=== PATIENT | male | born 1945 | race Caucasian/White ===

== ENCOUNTER 2018-09-25 09:44 | Inpatient (IN) ==
[2018-09-25] MEDS ORDERED: MoRPHine SULFATE 4 MG/ML 1 ML CARP\\VIAL IV STA (10:12)
--- NOTE | 2018-09-25 10:57 | XRay Report ---
LEFT KNEE 2 VIEWS HISTORY: Left knee pain. s/p fall COMPARISON: None. FINDINGS: There is no fracture or dislocation. Soft tissues are unremarkable. No significant knee eff usion. The bones are osteopenic. IMPRESSION: No fracture or dislocation within the left knee. Electronically signed by: Atif Denton M.D. 09/25/2018 10:56 AM
--- NOTE | 2018-09-25 10:57 | XRay Report ---
SINGLE VIEW PELVIS; 2 VIEWS LEFT HIP; 2 VIEWS LEFT FEMUR CLINICAL HISTORY: Fall with left hip injury. FINDINGS: An AP view of the pelvis with AP and crosstable lateral views of the left hip as well as AP and crosstable lateral views of the left femur are obtained. No prior studies are available for carlos braswell at the time of dictation. The skeletal structures are osteopenic. There is no radiographic emre dence of fracture involving the right hip or the bony pelvis. There is a distracted and angulated int ertrochanteric fracture of the left femur with small distracted fragments of the greater trochanter. Overlying soft tissue edema is noted. The distal femur appears intact. The knee joint is grossly main tained. The sacroiliac joints appear preserved. No bowel obstruction is identified. Phleboliths are o bserved in the pelvis. There is atherosclerotic calcification within the femoral arteries. IMPRESSION: 1. Intertrochanteric fracture of the left femur as above. 2. The distal left femur appears intact. 3. No fracture is seen involving the right hip or the bony pelvis. Electronically signed by: Jonnie Peck M.D. 09/25/2018 10:56 AM
--- NOTE | 2018-09-25 10:59 | XRay Report ---
SINGLE VIEW CHEST CLINICAL HISTORY: Fall. FINDINGS: An AP, portable, supine chest radiograph is obtained No prior studies are available for pato worley at the time of dictation. The examination is degraded by portable technique and patient rotat ion. The cardiomediastinal silhouette is unremarkable comment noting mild atherosclerotic calcificati on of the thoracic aorta. There is mild bibasilar atelectasis. No airspace consolidation or large ple ural effusion is identified. No pneumothorax is seen. The skeletal structures are osteopenic. The bon y thorax is grossly intact. IMPRESSION: No acute cardiopulmonary abnormality. Electronically signed by: Jonnie Peck M.D. 09/25/2018 10:58 AM
[2018-09-25] MEDS ORDERED: SODIUM CHLORIDE 0.9% 1000ML 1,000 ML IV SCH (12:00)
[2018-09-25 12:12] LABS: Basophils # (auto) 0.03 K/uL (0-0.2); Basophils % (auto) 0.5 %; Eosinophils # (auto) 0.21 K/uL (0-0.5); Eosinophils % (auto) 3.3 %; Hemoglobin 12.7 g/dL (14.0-18.0); Immature Granulocytes # (auto) 0.02 K/uL (0.00-0.02); Immature Granulocytes % (auto) 0.3 %; Lymphocytes # (auto) 0.68 K/uL (1.2-3.4); Lymphocytes % (auto) 10.8 %; Mean Corpuscular Hgb Conc 36.3 g/dL (32-36); Mean Corpuscular Volume 84.3 fL (80-100); Mean Platelet Volume 10.7 fL (7.4-10.4); Monocytes # (auto) 0.33 K/uL (0.11-0.59); Monocytes % (auto) 5.2 %; Neutrophils # (auto) 5.05 K/uL (1.4-6.5); Neutrophils % (auto) 79.9 %; Platelet Count 120 K/uL (130-400); RDW Coefficient of Variation 13.9 % (11.5-14.5); RDW Standard Deviation 42.6 fL (36.4-46.3); Red Blood Count 4.15 M/uL (4.7-6.1); White Blood Count 6.32 K/uL (4.8-10.8)
[2018-09-25 12:26] LABS: Partial Thromboplastin Time 26.1 Seconds (21.0-31.0)
[2018-09-25 12:33] LABS: BUN Creatinine Ratio 21.3 (10-20); Blood Urea Nitrogen 25 mg/dl (7-18); Calcium 8.6 mg/dl (8.5-10.1); Carbon Dioxide 28 mmol/L (21-32); Chloride 100 mmol/L (98-107); Est GFR (African American) 73.5; Est GFR (Non-African American) 63.5; Glucose 361 mg/dl (70-99); Sodium 133 mmol/L (136-145)
[2018-09-25 12:47] LABS: Beta-Hydroxybutyrate 3.07 mg/dl (0.2-2.81)
--- NOTE | 2018-09-25 12:58 | History & Physical Report ---
Date of Service September 25, 2018 Assessment & Plan (1) Closed intertrochanteric fracture of femur: pain control with Oxycodone and Morphine IV bedrest, traction consult Ortho, plan for OR tomorrow, patient can eat today consult anesthesiology patient with no history of DC, stroke, CKD, arrhythmia or valve disease does have prediabetes with hyperglycemia EKG: NSR CXR: normal should be low to moderate risk for cardiac complications medically optimized for OR (2) Fall: due to slipping on ice no loss of consciousness, this was not syncope (3) Glaucoma: continue home drops (4) Pre-diabetes: sugars quite elevated, > 300, suggests maybe he actually has DM will check HbA1c diabetic diet, Novolog SS History of Present Illness Chief Complaint: I fell and my left hip hurts really bad Primary Care Provider: Brayan Harrison MD 72 yo male with history of pre-diabetes, glaucoma, macular degeneration who was coming out of his house today and slipped on patch of ice. He thought that the patch was snow but it had frozen solid over night. He said he purposefully tried to fall on his side because he did not want to hit his head and did not want to put his arms out in case he would fracture his collar bone. 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 He landed with all his weight on his left hip and instantly had pain. He was able to get to a seated position on the ground but the pain was so intense that he knew he could not stand. His neighbors helped him into a car, lifting him, and brought him to the hospital. He rates the pain as 8 out of 10, constant, worse with movement, Morphine did help a little. Imaging showed a left intertrochanteric fracture, no other injuries seen. Orthopedics called, will plan for OR tomorrow, patient can eat today. Patient has very little in terms of medical history. He has pre-diabetes, not on any medications. His main issues are glaucoma, macular degeneration, cataracts that have been fixed. He denies any history of DC, stroke, CKD, valve disease or arrhythmias. His father from alcoholic cirrhosis, mother from lung cancer, she was a heavy smoker. She also had diabetes. He has a brother who is healthy. The patient does not smoke. He has one Bun Light every night to help him relax but does not drink more than that. CXR normal, Cr 1.1 and EKG shows sinus rhythm Allergies Allergy/AdvReac Type Severity Reaction Status Date / Time cat dander AdvReac Sneezing Verified 09/25/18 10:33 horse dander AdvReac Sneezing Verified 09/25/18 10:33 Home Medications Home Medications Medication Instructions Recorded Confirmed Type ofloxacin OPHTHALMIC (EYE) 09/25/18 History prednisolone acetate OPHTHALMIC (EYE) DIRECTED 09/25/18 History timolol maleate OPHTHALMIC (EYE) 09/25/18 History Past Med/Surg History Family History Father Alcoholic cirrhosis Mother Lung cancer Diabetes Social History Current Living Situation: Spouse Other Information That Helps Us Care for You: No Feels Safe at Home: Yes Safety Concerns: Feels Safe At This Time Smoking Status: Never smoker Second Hand Exposure: No Hx Alcohol Use: Yes Alcohol type: beer Alcohol Intake Frequency: 0-2 drinks per day Hx Substance Use: No Beliefs That Will Affect Care: None Preferred Language: Haitian Communication Ability: Effective Review of Systems All systems reviewed & are unremarkable except as noted in HPI & below Musculoskeletal: + joint pain (severe left hip pain) Physical Exam 2 Vital Signs (Past 24 Hours): Last Vital Signs Temp 36.3 C L 09/25/18 09:53 Pulse 73 09/25/18 12:30 Resp 14 09/25/18 12:30 BP 180/99 H 09/25/18 12:30 Pulse Ox 95 09/25/18 12:30 Constitutional: WD/WN, vitals as above Eyes: PERRL, conjunctivae normal, anicteric sclerae ENMT: external ear and nose normal, oropharynx normal Neck: trachea midline, no thyromegaly Respiratory: normal respiratory effort, lungs clear to auscultation Cardiovascular: RRR, no murmur, no edema Gastrointestinal (Abdomen): normal bowel sounds, soft, nontender, no hepatosplenomegaly Musculoskeletal: no cyanosis or clubbing, extremities motor strength 5/5 Extremities: + limited ROM of extremities (left hip, painful to move) Skin: no rashes, warm and dry Neurologic: patellar DTR's 2+ bilat, sensation intact and PERRL, EOMI, accommodation nl, no face palsy, no dysarthria Psychiatric: A+Ox3, euthymic affect Lymphatic: no cervical or axillary lymphadenopathy Results & Data Laboratory Results Laboratory Results - last 24 hr 09/25/18 09/25/18 09/25/18 11:55 11:55 11:55 WBC 6.32 RBC 4.15 L Hgb 12.7 L Hct 35.0 L MCV 84.3 MCH 30.6 MCHC 36.3 H RDW Std Deviation 42.6 RDW Coeff of Pranav 13.9 Plt Count 120 L MPV 10.7 H Immature Gran % (Auto) 0.3 Neut % (Auto) 79.9 Lymph % (Auto) 10.8 Mccracken % (Auto) 5.2 Eos % (Auto) 3.3 Baso % (Auto) 0.5 Immature Gran # (Auto) 0.02 Neut # (Auto) 5.05 Lymph # (Auto) 0.68 L Mccracken # (Auto) 0.33 Eos # (Auto) 0.21 Baso # (Auto) 0.03 PT 10.0 INR 1.0 APTT 26.1 PTT Ratio 1.0 Sodium 133 L Potassium 4.0 Chloride 100 Carbon Dioxide 28 Anion Gap 5.0 BUN 25 H Creatinine 1.16 Est Cr Clr Drug Dosing Not Reportable Est GFR ( Amer) 73.5 Est GFR (Non-Af Amer) 63.5 BUN/Creatinine Ratio 21.3 H Glucose 361 H* Calcium 8.6 Beta-Hydroxybutyric Acd 3.07 H Diagnostic Findings PELVIC XRAY IMPRESSION: 1. Intertrochanteric fracture of the left femur as above. 2. The distal left femur appears intact. 3. No fracture is seen involving the right hip or the bony pelvis. FEMUR XRAY IMPRESSION: 1. Intertrochanteric fracture of the left femur as above. 2. The distal left femur appears intact. 3. No fracture is seen involving the right hip or the bony pelvis. CHEST XRAY IMPRESSION: No acute cardiopulmonary abnormality ECG Indication: other (pre op) Rhythm: normal sinus Code Status & VTE Plan Code Status FULL CODE VTE Prophylaxis Plan VTE Prophylaxis will be ordered: Yes _ (1) Closed intertrochanteric fracture of femur Encounter type: initial encounter Fracture alignment: nondisplaced Fracture healing: Laterality: left Qualified Code(s): S72.145A - Nondisplaced intertrochanteric fracture of left femur, initial encounter for closed fracture
[2018-09-25] MEDS ORDERED: OXYCODONE HCL IR 5 MG TAB (IMMEDIATE RELEASE) PO PRN (14:33)
[2018-09-25] MEDS ORDERED: MAGNESIUM HYDROXIDE SUSP 30 ML UDC PO PRN (14:33)
[2018-09-25] MEDS ORDERED: ACETAMINOPHEN 325 MG TAB PO PRN (14:33)
[2018-09-25] MEDS ORDERED: POLYETHYLENE (MIRALAX) 17 GM PACK PO PRN (14:33)
[2018-09-25] MEDS ORDERED: BISACODYL 10 MG SUPP PR PRN (14:33)
[2018-09-25] MEDS ORDERED: NALOXONE HCL 0.4 MG/1 ML VIAL/CARP IV PRN (14:33)
[2018-09-25] MEDS ORDERED: SOD PHOSPHATE/SOD BIPHOSPHATE ENEMA 132 ML BTL PR PRN (14:33)
[2018-09-25] MEDS ORDERED: GLUCAGON FOR INJ 1 MG VIAL IM PRN (14:38)
[2018-09-25] MEDS ORDERED: GLUCOSE 40% GEL 15 GM TUBE PO PRN (14:38)
[2018-09-25] MEDS ORDERED: DEXTROSE 50% 50 ML SYRINGE IV PRN (14:38)
[2018-09-25] MEDS ORDERED: GLUCOSE 10 TABS/TUBE PO PRN (14:38)
[2018-09-25] MEDS ORDERED: CARBOHYDRATES FOR HYPOGLYCEMIA PO PRN (14:38)
--- NOTE | 2018-09-25 15:06 | Anesthesiology Consultation ---
Date of Service September 25, 2018 Assessment & Plan (1) Encounter for pre-operative examination: Chart Review Chart Review: Acceptable Risk for Surgery Consults Requested none History Height/Weight Height: 5 ft 10 in Weight: 73.936 kg Allergies Allergy/AdvReac Type Severity Reaction Status Date / Time cat dander AdvReac Sneezing Verified 09/25/18 10:33 horse dander AdvReac Sneezing Verified 09/25/18 10:33 Medications Home Medications Medication Instructions Recorded Confirmed Last Taken ofloxacin OPHTHALMIC (EYE) 09/25/18 Unknown prednisolone acetate OPHTHALMIC (EYE) DIRECTED 09/25/18 Unknown timolol maleate OPHTHALMIC (EYE) 09/25/18 Unknown Active Medications Generic Name Dose Route Start Last Admin Trade Name Freq PRN Reason Stop Dose Admin Sodium Chloride 1,000 mls @ 150 mls/hr 09/25/18 12:00 09/25/18 14:43 Nss 1000ml IV 09/25/18 18:39 150 mls/hr .[id number] [facility] Infusion Past Medical History Medical History Fall Glaucoma Pre-diabetes Hiatal hernia (Acute) Past Family History Family History Father Alcoholic cirrhosis Mother Lung cancer Diabetes Past Surgical History Surgical History Hx of knee surgery Hx of cataract surgery RIGHT on 07/15/18: was given 4mg of versed without apparent complications Social History Smoking Status: Never smoker Hx Alcohol Use: Yes Alcohol type: beer alcohol intake frequency: 0-2 drinks per day Hx Substance Use: No substance use type: does not use Exercise / Class Metabolic Activity II 4-5 Yardwork/Stairs/Walk up hill Physical Exam Vital Signs Last Vital Signs Temp 97.3 F L 09/25/18 14:10 Pulse 80 09/25/18 14:10 Resp 18 09/25/18 14:10 BP 182/92 H 09/25/18 14:10 Pulse Ox 98 09/25/18 14:10 Testing Electrocardiogram Date: 09/25/18 Findings: + NSR @ (73 bpm) Chest X-Ray Date: 09/25/18 Findings: + NAD Laboratory Results 09/25/18 11:55 09/25/18 11:55 Blood Type O Positive 09/25/18 11:55 Antibody Screen NEGATIVE 09/25/18 11:55 PT 10.0 Seconds (9.0-12.0) 09/25/18 11:55 INR 1.0 (0.9-1.1) 09/25/18 11:55 APTT 26.1 Seconds (21.0-31.0) 09/25/18 11:55
[2018-09-25] MEDS: MoRPHine SULFATE 4 MG/ML 1 ML CARP\\VIAL IV PRN (15:44)
[2018-09-25 15:53] LABS: Appearance Urine Clear (Clear); Bacteria Urine Automated Negative (Negative); Bilirubin Urine Negative (Negative); Blood Urine Negative (Negative); Cast Urine Automated 0 /lpf (0-5); Color Urine Yellow; Epithelial Cell Urine Auto 0-5 /lpf (0-5); Glucose Urine UA 3+ (Negative); Ketones Urine Negative (Negative); Leukocyte Esterase Urine Negative (Negative); Nitrite Urine Negative (Negative); Protein Urine 1+ (Negative); RBC Urine Automated 0-4 /hpf (0-4); Specific Gravity Urine 1.028 (1.000-1.030); Urobilinogen Urine Negative (Negative); WBC Urine Automated 0 /hpf (0-5); pH Urine 6.5 (4.5-7.5)
--- NOTE | 2018-09-25 16:53 | Emergency Department Note ---
Entered by Christine Isaacs acting as a scribe for History of Present Illness General Chief complaint: Fall Stated complaint: FALL Time Seen by Provider: 09/25/18 09:58 Source: patient Mode of arrival: ambulatory Limitations: no limitations History of Present Illness Onset (ago): day(s) (829) Location: lower extremity (left) Radiation: other (ankle) Pain Consistency: + other (episode) Maximum Pain Intensity: 10 Quality: + other (fall) Associated symptoms: + other (The patient complains of pain in his left thigh that radiates down ho his left ankle. The patient denies head pain, chest pain, left hip pain, right leg pain, and abnormal pain. ); no chest pain The patient is a 72 male w/ PMHx of a broken knee, glaucoma, pre- diabetes who presents to the ED w/ CC of an episode fall beginning 829. He states that he fell on his left side. The patient complains of pain in his left thigh that radiates down to his left ankle. The patient denies head pain, chest pain, left hip pain, right leg pain, and abnormal pain. Per , the patient took two acetaminophen. Home Medications Home Medications Medication Instructions Recorded Confirmed Type ofloxacin OPHTHALMIC (EYE) 09/25/18 History prednisolone acetate OPHTHALMIC (EYE) DIRECTED 09/25/18 History timolol maleate OPHTHALMIC (EYE) 09/25/18 History Allergies Allergy/AdvReac Type Severity Reaction Status Date / Time cat dander AdvReac Sneezing Verified 09/25/18 10:33 horse dander AdvReac Sneezing Verified 09/25/18 10:33 Past Med/Surg History Medical History Fall Glaucoma Pre-diabetes Hiatal hernia (Acute) Surgical History Hx of knee surgery Hx of cataract surgery RIGHT on 07/15/18: was given 4mg of versed without apparent complications Family History Father Alcoholic cirrhosis Mother Lung cancer Diabetes Social History Current Living Situation: Spouse Other Information That Helps Us Care for You: No Feels Safe at Home: Yes Safety Concerns: Feels Safe At This Time Smoking Status: Never smoker Second Hand Exposure: No Hx Alcohol Use: Yes Alcohol type: beer Alcohol Intake Frequency: 0-2 drinks per day Hx Substance Use: No Beliefs That Will Affect Care: None Preferred Language: Occitan Communication Ability: Effective Review of Systems See HPI for pertinent positives & negatives. and A total of 10 systems reviewed and were otherwise negative Physical Exam Vital Signs Vital Signs - 24 hr 09/25/18 09:53 09/25/18 10:21 09/25/18 11:26 Temperature 36.3 C L Temperature Source Oral Sepsis Recent Fever Within 48 Hours No Sepsis New/Unexplained Change in Mental Status No Sepsis Action Taken by Nursing No Action Required Pulse Rate 74 Pulse Rate [Finger] 72 74 Pulse Rate from SpO2 Sensor Pulse Rhythm [Finger] Regular Respiratory Rate 18 18 16 Respiratory Effort / Characteristics Non-Labored Spontaneous Non-Labored Spontaneous Non-Labored Spontaneous Respiratory Depth Normal Normal Normal Respiratory Pattern Regular Regular Regular Blood Pressure 213/104 H Blood Pressure [Left Arm] 201/117 H Blood Pressure [Right Arm] 200/108 H 208/109 H Blood Pressure Mean 140 Blood Pressure Mean [Left Arm] 145 Blood Pressure Mean [Right Arm] 138 142 Blood Pressure Position [Left Arm] Blood Pressure Position [Right Arm] Lying Pulse Oximetry 100 100 96 Oxygen Delivery Method Room Air Room Air 09/25/18 12:09 09/25/18 12:30 09/25/18 12:31 Temperature Temperature Source Sepsis Recent Fever Within 48 Hours Sepsis New/Unexplained Change in Mental Status Sepsis Action Taken by Nursing Pulse Rate 73 Pulse Rate [Finger] 72 Pulse Rate from SpO2 Sensor 73 Pulse Rhythm [Finger] Respiratory Rate 19 14 Respiratory Effort / Characteristics Respiratory Depth Respiratory Pattern Blood Pressure 180/99 H Blood Pressure [Left Arm] 189/107 H Blood Pressure [Right Arm] Blood Pressure Mean 126 Blood Pressure Mean [Left Arm] 134 Blood Pressure Mean [Right Arm] Blood Pressure Position [Left Arm] Blood Pressure Position [Right Arm] Pulse Oximetry 94 95 Oxygen Delivery Method Room Air Room Air Room Air 09/25/18 13:01 09/25/18 13:31 09/25/18 14:10 Temperature 36.3 C L Temperature Source Oral Sepsis Recent Fever Within 48 Hours Sepsis New/Unexplained Change in Mental Status Sepsis Action Taken by Nursing Pulse Rate 74 Pulse Rate [Finger] 75 80 Pulse Rate from SpO2 Sensor 74 Pulse Rhythm [Finger] Respiratory Rate 25 H 17 18 Respiratory Effort / Characteristics Non-Labored Spontaneous Respiratory Depth Normal Respiratory Pattern Regular Blood Pressure 151/88 H Blood Pressure [Left Arm] 153/89 H Blood Pressure [Right Arm] 182/92 H Blood Pressure Mean 109 Blood Pressure Mean [Left Arm] 110 Blood Pressure Mean [Right Arm] 122 Blood Pressure Position [Left Arm] Blood Pressure Position [Right Arm] Lying Pulse Oximetry 96 98 98 Oxygen Delivery Method Room Air Room Air Room Air 09/25/18 15:22 Temperature 36.5 C Temperature Source Oral Sepsis Recent Fever Within 48 Hours Sepsis New/Unexplained Change in Mental Status Sepsis Action Taken by Nursing Pulse Rate Pulse Rate [Finger] 77 Pulse Rate from SpO2 Sensor Pulse Rhythm [Finger] Respiratory Rate 17 Respiratory Effort / Characteristics Respiratory Depth Respiratory Pattern Blood Pressure Blood Pressure [Left Arm] 168/87 H Blood Pressure [Right Arm] Blood Pressure Mean Blood Pressure Mean [Left Arm] 114 Blood Pressure Mean [Right Arm] Blood Pressure Position [Left Arm] Lying Blood Pressure Position [Right Arm] Pulse Oximetry 95 Oxygen Delivery Method Room Air GENERAL: Anxious in appearance. EYE EXAM: Normal conjunctiva. PERRL, no anisocoria and EOM's grossly intact w/o pain. OROPHARYNX: Mucous membranes moist. NECK: Supple, no nuchal rigidity, no adenopathy, non-tender. no signs of meningismus. LUNGS: Clear to auscultation. Normal chest wall mechanics. HEART: NSR, no MRG. ABDOMEN: Abdomen soft, non-tender, normo-active bowel sounds, no masses, no rebound or guarding. BACK: No CVA TTP. SKIN: No rashes and no bruising. UPPER EXTREMITIES: Upper extremities are grossly normal. LOWER EXTREMITIES: Mid-thigh pain, decreased range of motion secondary to pain, legs appear of equal length, SILT. NEURO EXAM: Alert and oriented x3, GCS of 15, moves all extremities without issue, no gross deficits. Course 1005: Past medical records reviewed. The patient was evaluated in room B2, and a complete history and physical examination were performed. 1157: I reviewed the patient's case with Dr. Keith Huston [facility]. He will evaluate the patient for further management. 1219: I reviewed the patient's case with Dr. Derrell Huston. He will evaluate the patient for further management. 1235: I reviewed the patient's case with Dr. Anup Doran - Ellie [facility]. He will evaluate the patient for further management. Consultations Consultation #1: [id number]: I reviewed the patient's case with Dr. Keith Huston [facility]. He will evaluate the patient for further management. Time: 11:57 Consultation #2: [id number]: I reviewed the patient's case with Dr. Derrell Huston. He will evaluate the patient for further management. Time: 12:19 Consultation #3: [id number]: I reviewed the patient's case with Dr. Anup Doran - Ellie [facility]. He will evaluate the patient for further management. Time: 12:35 Administered Medications Sodium Chloride (Nss 1000ml) 1,000 mls @ 150 mls/hr IV .[id number] FAWN Stop: 09/25/18 18:39 Last Infusion: 09/25/18 14:43 Dose: 150 mls/hr Admin: 09/25/18 12:01 Dose: 150 mls/hr Morphine Sulfate (Morphine Sulfate) 2 mg IV Q2H PRN PRN Reason: moderate pain (scale 4-6) Stop: 10/09/18 14:32 Last Admin: 09/25/18 15:44 Dose: 2 mg Discontinued Medications Morphine Sulfate (Morphine Sulfate) 4 mg IV NOW STA Stop: 09/25/18 10:13 Last Admin: 09/25/18 10:21 Dose: 4 mg Medical Decision Making Medical Records Attestation: I reviewed the patient's medical records. Home Medications Current Medication List: was personally reviewed by me Laboratory Data Attestation: I reviewed the patient's lab results. Result diagrams: 09/25/18 11:55 09/25/18 11:55 Lab Results 09/25/18 09/25/18 09/25/18 Range/Units 11:55 11:55 11:55 WBC 6.32 (4.8-10.8) K/uL RBC 4.15 L (4.7-6.1) M/uL Hgb 12.7 L (14.0-18.0) g/dL Hct 35.0 L (42-52) % MCV 84.3 (80-100) fL MCH 30.6 (25-34) pg MCHC 36.3 H (32-36) g/dL RDW Std Deviation 42.6 (36.4-46.3) fL RDW Coeff of Pranav 13.9 (11.5-14.5) % Plt Count 120 L (130-400) K/uL MPV 10.7 H (7.4-10.4) fL Immature Gran % (Auto) 0.3 % Neut % (Auto) 79.9 % Lymph % (Auto) 10.8 % [place] % (Auto) 5.2 % Eos % (Auto) 3.3 % Baso % (Auto) 0.5 % Immature Gran # (Auto) 0.02 (0.00-0.02) K/uL Neut # (Auto) 5.05 (1.4-6.5) K/uL Lymph # (Auto) 0.68 L (1.2-3.4) K/uL [place] # (Auto) 0.33 (0.11-0.59) K/uL Eos # (Auto) 0.21 (0-0.5) K/uL Baso # (Auto) 0.03 (0-0.2) K/uL PT 10.0 (9.0-12.0) Seconds INR 1.0 (0.9-1.1) APTT 26.1 (21.0-31.0) Seconds PTT Ratio 1.0 Sodium 133 L (136-145) mmol/L Potassium 4.0 (3.5-5.1) mmol/L Chloride 100 (98-107) mmol/L Carbon Dioxide 28 (21-32) mmol/L Anion Gap 5.0 (3-11) BUN 25 H (7-18) mg/dl Creatinine 1.16 (0.6-1.4) mg/dl Est Cr Clr Drug Dosing Not Reportable Est GFR ( Amer) 73.5 Est GFR (Non-Af Amer) 63.5 BUN/Creatinine Ratio 21.3 H (10-20) Glucose 361 H* (70-99) mg/dl Calcium 8.6 (8.5-10.1) mg/dl Beta-Hydroxybutyric Acd 3.07 H (0.2-2.81) mg/dl Urine Color Urine Appearance (Clear) Urine pH (4.5-7.5) Ur Specific [place] (1.000-1.030) Urine Protein (Negative) Urine Glucose (UA) (Negative) Urine Ketones (Negative) Urine Blood (Negative) Urine Nitrite (Negative) Urine Bilirubin (Negative) Urine Urobilinogen (Negative) Ur Leukocyte Esterase (Negative) Urine WBC (Auto) (0-5) /hpf Urine RBC (Auto) (0-4) /hpf U Hyaline Cast (Auto) (0-5) /lpf U Epithel Cells (Auto) (0-5) /lpf Urine Bacteria (Auto) (Negative) Blood Type Antibody Screen 09/25/18 09/25/18 Range/Units 11:55 14:56 WBC (4.8-10.8) K/uL RBC (4.7-6.1) M/uL Hgb (14.0-18.0) g/dL Hct (42-52) % MCV (80-100) fL MCH (25-34) pg MCHC (32-36) g/dL RDW Std Deviation (36.4-46.3) fL RDW Coeff of Pranav (11.5-14.5) % Plt Count (130-400) K/uL MPV (7.4-10.4) fL Immature Gran % (Auto) % Neut % (Auto) % Lymph % (Auto) % [place] % (Auto) % Eos % (Auto) % Baso % (Auto) % Immature Gran # (Auto) (0.00-0.02) K/uL Neut # (Auto) (1.4-6.5) K/uL Lymph # (Auto) (1.2-3.4) K/uL [place] # (Auto) (0.11-0.59) K/uL Eos # (Auto) (0-0.5) K/uL Baso # (Auto) (0-0.2) K/uL PT (9.0-12.0) Seconds INR (0.9-1.1) APTT (21.0-31.0) Seconds PTT Ratio Sodium (136-145) mmol/L Potassium (3.5-5.1) mmol/L Chloride (98-107) mmol/L Carbon Dioxide (21-32) mmol/L Anion Gap (3-11) BUN (7-18) mg/dl Creatinine (0.6-1.4) mg/dl Est Cr Clr Drug Dosing Est GFR ( Amer) Est GFR (Non-Af Amer) BUN/Creatinine Ratio (10-20) Glucose (70-99) mg/dl Calcium (8.5-10.1) mg/dl Beta-Hydroxybutyric Acd (0.2-2.81) mg/dl Urine Color Yellow Urine Appearance Clear (Clear) Urine pH 6.5 (4.5-7.5) Ur Specific [place] 1.028 (1.000-1.030) Urine Protein 1+ H (Negative) Urine Glucose (UA) 3+ H (Negative) Urine Ketones Negative (Negative) Urine Blood Negative (Negative) Urine Nitrite Negative (Negative) Urine Bilirubin Negative (Negative) Urine Urobilinogen Negative (Negative) Ur Leukocyte Esterase Negative (Negative) Urine WBC (Auto) 0 (0-5) /hpf Urine RBC (Auto) 0-4 (0-4) /hpf U Hyaline Cast (Auto) 0 (0-5) /lpf U Epithel Cells (Auto) 0-5 (0-5) /lpf Urine Bacteria (Auto) Negative (Negative) Blood Type O Positive Antibody Screen NEGATIVE Imaging Data Radiologist's Impression: Radiology results as stated below per my review and the radiologist's interpretation: LEFT KNEE 2 VIEWS HISTORY: Left knee pain. s/p fall COMPARISON: None. FINDINGS: There is no fracture or dislocation. Soft tissues are unremarkable. No significant knee effusion. The bones are osteopenic. IMPRESSION: No fracture or dislocation within the left knee. Electronically signed by: Atif Denton M.D. 09/25/2018 10:56 AM Dictated: 09/25/18 1055 Transcribed: 09/25/18 1055 SINGLE VIEW PELVIS; 2 VIEWS LEFT HIP; 2 VIEWS LEFT FEMUR CLINICAL HISTORY: Fall with left hip injury. FINDINGS: An AP view of the pelvis with AP and crosstable lateral views of the left hip as well as AP and crosstable lateral views of the left femur are obtained. No prior studies are available for comparison at the time of dictation. The skeletal structures are osteopenic. There is no radiographic evidence of fracture involving the right hip or the bony pelvis. There is a distracted and angulated intertrochanteric fracture of the left femur with small distracted fragments of the greater trochanter. Overlying soft tissue edema is noted. The distal femur appears intact. The knee joint is grossly maintained. The sacroiliac joints appear preserved. No bowel obstruction is identified. Phleboliths are observed in the pelvis. There is atherosclerotic calcification within the femoral arteries. IMPRESSION: 1. Intertrochanteric fracture of the left femur as above. 2. The distal left femur appears intact. 3. No fracture is seen involving the right hip or the bony pelvis. Electronically signed by: Jonnie Peck M.D. 09/25/2018 10:56 AM Dictated: 09/25/18 1054 Transcribed: 09/25/18 1054 SINGLE VIEW PELVIS; 2 VIEWS LEFT HIP; 2 VIEWS LEFT FEMUR CLINICAL HISTORY: Fall with left hip injury. FINDINGS: An AP view of the pelvis with AP and crosstable lateral views of the left hip as well as AP and crosstable lateral views of the left femur are obtained. No prior studies are available for comparison at the time of dictation. The skeletal structures are osteopenic. There is no radiographic evidence of fracture involving the right hip or the bony pelvis. There is a distracted and angulated intertrochanteric fracture of the left femur with small distracted fragments of the greater trochanter. Overlying soft tissue edema is noted. The distal femur appears intact. The knee joint is grossly maintained. The sacroiliac joints appear preserved. No bowel obstruction is identified. Phleboliths are observed in the pelvis. There is atherosclerotic calcification within the femoral arteries. IMPRESSION: 1. Intertrochanteric fracture of the left femur as above. 2. The distal left femur appears intact. 3. No fracture is seen involving the right hip or the bony pelvis. Electronically signed by: Jonnie Peck M.D. 09/25/2018 10:56 AM Dictated: 09/25/18 1054 Transcribed: 09/25/18 105 SINGLE VIEW CHEST CLINICAL HISTORY: Fall. FINDINGS: An AP, portable, supine chest radiograph is obtained No prior studies are available for comparison at the time of dictation. The examination is degraded by portable technique and patient rotation. The cardiomediastinal silhouette is unremarkable comment noting mild atherosclerotic calcification of the thoracic aorta. There is mild bibasilar atelectasis. No airspace consolidation or large pleural effusion is identified. No pneumothorax is seen. The skeletal structures are osteopenic. The bony thorax is grossly intact. IMPRESSION: No acute cardiopulmonary abnormality. Electronically signed by: Jonnie Peck M.D. 09/25/2018 10:58 AM Dictated: 09/25/18 1057 Transcribed: 09/25/18 105 ECG Data Attestation: I personally reviewed and interpreted this ECG as follows: Indication: other (fall) Rate (beats per minute): 73 Rhythm: normal sinus Findings: + other (normal interval, normal axis); no acute ischemic change Blood Pressure Blood Pressure Findings: Elevated blood pressure Blood Pressure Disposition: further management by hospitalist MDM Narrative The patient is a 72 white male w/ PMHx of a broken knee, glaucoma, pre-diabetes who presents to the ED w/ CC of an episode fall beginning 829. Differential Diagnoses Include: Etiologies such as soft tissue injury, fracture, dislocation, neurovascular compromise, compartment syndrome, as well as others were entertained. Patient was seen and evaluated the bedside. The patient states he was walking on his driveway did have a fall to his left side. The patient states he did not strike his head. The patient does not take any blood thinning medications. The patient does complain primarily of left thigh pain. The patient's bilateral lower extremities appear of equal length. Sensation is intact. His range of motion is limited secondary to pain. The patient did have plain films completed along with medications given system for symptom control. The patient does not take any blood thinning medications did not strike his head does not have any neck pain I do not believe he requires a CT of the head or neck at this time. Patient's plain films did show a left and fracture. This is a closed injury sensation intact to light touch. I did speak with orthopedics. I did speak with the on-call hospitalist who agreed to further evaluate and admit the patient. The patient was to be seen by orthopedics and a likely surgical procedure tomorrow. Impression & Plan Closed intertrochanteric fracture of femur Discharge Plan Visit Data *Final* Discharge Date/Time: 09/25/18 14:09 Chief Complaint: Fall Stated Complaint: FALL ED Provider: Sebastian Loyd Discharge Problem: Closed intertrochanteric fracture of femur Patient Disposition: Admitted As Inpatient Discharge Instructions Interventions: ED Discharge Assessment Last Done: 09/25/18 14:09 The ramonaibe's documentation has been prepared under my direction and personally reviewed by me in its entirety. I confirm that the note above accurately reflects all work, treatment, procedures, and medical decision making performed by me.
--- NOTE | 2018-09-25 18:14 | Orthopedic Consultation ---
Date of Consultation September 25, 2018 Assessment & Plan (1) Closed intertrochanteric fracture of femur: Left intertrochanteric hip fracture. X-rays to be reviewed by Dr. Dove this evening. Plans will likely be for left trochanteric femoral nailing of the intertrochanteric fracture. Planning for the operating room tomorrow 09/26/2018. History of Present Illness Reason for Consultation: Left hip fx Attending Physician: Anup Doran, History of Present Illness Patient is a 72-year-old white male who states that he was going out this morning when he slipped on the ice. He ended up falling onto his side and after doing so, he had immediate pain in his left hip and groin. He was able to sit up however he was having moderate pain and was unable to ambulate. He was able to a obtain help from his neighbors and he was brought to the emergency room. He was seen by the staff and x-rays were taken. Films showed an intertrochanteric fracture of the left hip. He was admitted by the medicine service and we have been asked to see him for his hip fracture. He denies hitting his head during the fall. He denies loss of consciousness. He denied shortness of breath, chest pain, lightheadedness prior to or after the fall.Currently he is lying in bed and has a pillow under his left lower extremity. He states that most of his pain at this point is just below the fracture site anteriorly on the thigh. Allergies Allergy/AdvReac Type Severity Reaction Status Date / Time cat dander AdvReac Sneezing Verified 09/25/18 10:33 horse dander AdvReac Sneezing Verified 09/25/18 10:33 Home Medications Home Medications Medication Instructions Recorded Confirmed Type ofloxacin OPHTHALMIC (EYE) 09/25/18 History prednisolone acetate OPHTHALMIC (EYE) DIRECTED 09/25/18 History timolol maleate OPHTHALMIC (EYE) 09/25/18 History Patient History Medical History Fall Glaucoma Pre-diabetes Hiatal hernia (Acute) Surgical History Hx of knee surgery Hx of cataract surgery RIGHT on 07/15/18: was given 4mg of versed without apparent complications Family History Father Alcoholic cirrhosis Mother Lung cancer Diabetes Social History Current Living Situation: Spouse Other Information That Helps Us Care for You: No Feels Safe at Home: Yes Safety Concerns: Feels Safe At This Time Smoking Status: Never smoker Second Hand Exposure: No Hx Alcohol Use: Yes Alcohol type: beer Alcohol Intake Frequency: 0-2 drinks per day Hx Substance Use: No Beliefs That Will Affect Care: None Preferred Language: Tajik Communication Ability: Effective Review of Systems As per admitting history and physical. No flu or cold-like symptoms of recent. Denies chills, fevers, nausea or vomiting. Physical Exam 2 Vital Signs (Past 24 Hours): Last Vital Signs Temp 36.5 C 09/25/18 15:22 Pulse 77 09/25/18 15:22 Resp 17 09/25/18 15:22 BP 168/87 H 09/25/18 15: Pulse Ox 95 09/25/18 15:22 Physical Exam: Focusing exam on the lower extremity. His left lower extremity is shortened and externally rotated compared to the right. No attempts remove made to move the left hip. Due to fracture. He is nontender the left knee and has good range of motion of his left ankle and toes. Sensation is intact. Right lower extremity is benign and within normal limits with range of motion. Distal pulses are equal bilaterally. He has no overt bruising over the left hip. He has mild swelling. Upper extremities at this time are benign and have good range of motion at the shoulders elbows and wrist without pain. He denies neck pain and has good range of motion at this time. He denies thoracic or low back pain. There is no gross motor or sensory loss. _ (1) Closed intertrochanteric fracture of femur Encounter type: initial encounter Fracture alignment: nondisplaced Fracture healing: Laterality: left Qualified Code(s): S72.145A - Nondisplaced intertrochanteric fracture of left femur, initial encounter for closed fracture
[2018-09-25] MEDS: INSULIN ASPART 100 UNITS/ML 3 ML PEN SC SCH ×2 (18:51→21:25)
[2018-09-25] MEDS: DOCUSATE SODIUM/SENNA 50/8.6MG TAB PO SCH (21:23)
[2018-09-26] MEDS ORDERED: Nursing to Pharmacy Communication ONE ×2 (02:02→10:41)
[2018-09-26] MEDS: MoRPHine SULFATE 4 MG/ML 1 ML CARP\\VIAL IV PRN (05:55)
[2018-09-26] MEDS ORDERED: INSULIN ASPART 100 UNITS/ML 3 ML PEN SC SCH ×2 (06:00→12:00)
[2018-09-26] MEDS ORDERED: CEFAZOLIN 2000MG 2,000 MG/15 ML SYR IV SCH (06:00)
[2018-09-26] MEDS ORDERED: fentaNYL citrate 100 MCG/2 ML VIAL IV PRN (07:27)
[2018-09-26] MEDS ORDERED: ePHEDrine sulfate 50 MG/ML AMP IV PRN (07:27)
[2018-09-26] MEDS ORDERED: ONDANSETRON INJ 2 MG/ML 2 ML VIAL IV PRN (07:27)
[2018-09-26] MEDS ORDERED: ATROPINE SULFATE 0.1 MG/ML 10ML SYR IV PRN (07:27)
[2018-09-26] MEDS ORDERED: BUPIVACAINE 0.5 % 5 MG/1 ML PF 10ML VIAL ONE (07:31)
[2018-09-26] MEDS ORDERED: PROPOFOL IV EMULSION 10 MG/ML 20 ML VIAL IV ONE ×2 (07:31→08:41)
[2018-09-26] MEDS ORDERED: fentaNYL citrate 100 MCG/2 ML VIAL ONE (07:32)
[2018-09-26] MEDS ORDERED: MIDAZOLAM HCL 1 MG/ML 2ML VIAL ONE (07:32)
--- NOTE | 2018-09-26 08:05 | History & Physical Bridge Note ---
Date of Service September 26, 2018 History & Physical Bridge Note I have examined the patient, reviewed the History & Physical and in the interval since the performance of the History & Physical I have noted the following changes of clinical significance: no changes noted
[2018-09-26] MEDS ORDERED: BUPIVACAINE 0.5 % 5 MG/1 ML MPF 30ML VIAL ONE (08:51)
--- NOTE | 2018-09-26 08:51 | Hospitalist Progress Note ---
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 No double vision blurry vision No problems with speech or swallowing No palpitations, chest pain or pressure No Wheezing or breathing issues No abdominal pain nausea vomiting diarrhea changes in appetite or weight No burning urine urine frequency or changes in color complaints of some left leg pain No skin rashes or oral lesions No unusual bruising or bleeding No focused back pain or numbness or loss of strength No changes in memory or confusion Physical Exam 2 Vital Signs (Past 24 Hours): Last Vital Signs Temp 37.3 C 09/26/18 07:19 Pulse 83 09/26/18 07:19 Resp 16 09/26/18 07:19 BP 139/75 09/26/18 07:19 Pulse Ox 94 09/26/18 07:19 The patient appeared well nourished and normally developed. Vital signs as documented. Head exam is unremarkable. normocephalic, atraumatic Neck is without jugular venous distension, thyromegaly, or lymphademopathy Lungs are clear to auscultation and percussion. Cardiac exam reveals Rhythm is regular. First and second heart sounds normal. Abdominal exam reveals normal bowel sounds, no masses, no organomegaly Extremities are nonedematous and both pedal pulses are present does have typical postoperative pain Neurologic exam is A&Ox3, no focal deficits, strength is equal bilateral Psychologically seems neither anxious or depressed Skin is warm Dry without bruises or lesions _ (1) Closed intertrochanteric fracture of femur Encounter type: initial encounter Fracture alignment: nondisplaced Fracture healing: Laterality: left Qualified Code(s): S72.145A - Nondisplaced intertrochanteric fracture of left femur, initial encounter for closed fracture
--- NOTE | 2018-09-26 09:45 | Fluoroscopy Report ---
FL hip LT 2-3V HISTORY: 72 years-old Male LEFT TROCH NAIL status post placement of a left intratrochanteric nail wi th medullary sherice COMPARISON: Left femur and left hip radiographs 09/25/2018 TECHNIQUE: 4 spot fluoroscopic images of the left hip were obtained utilizing 55.2 seconds fluoroscop y time FINDINGS: There is satisfactory near-anatomic alignment of the left intertrochanteric fracture status post plac ement of an intratrochanteric nail with medullary sherice. No retained foreign bodies identified. IMPRESSION: Fluoroscopic assistance as above. Please see operative report for further details. The above report was generated using voice recognition software. It may contain grammatical, syntax o r spelling errors. Electronically signed by: Francis James M.D. 09/26/2018 9:43 AM
--- NOTE | 2018-09-26 09:52 | Post Operative Brief Note ---
Immediate Post Op Note v1 Date of Surgery September 26, 2018 Pre & Post Diagnosis Operation Date: 09/26/18 07:30 Pre-Op Diagnosis: Displaced ntertrochanteric fracture of the left femur Post-Op Diagnosis: Displaced intertrochanteric fracture of the left femur Procedure Operation Date: 09/26/18 07:30 Actual Procedures p open reduction internal fixation left intertrochanteric hip fracture with Synthes 12 x 235 mm trochanteric Fixation Nail, 11 mm x 95 mm helical blade and a 5 x 40 mm interlocking screw (Left) - Teja Dove DO Surgeon Teja Dove DO Meat Service Team Member Keith Kwok PA-C Estimated Blood Loss 30 Findings Consistent with Post-Op Diagnosis Specimens None Anesthesia Type Spinal MAC Complications none Disposition Accompanied Patient To Recovery: Yes Disposition: Recovery Room
--- NOTE | 2018-09-26 09:53 | Anesthesiology Progress Note ---
Date of Service September 26, 2018 Anesthesia Post Procedure Vital Signs Vital Signs: Temp Pulse Pulse Resp BP BP BP 09/26/18 07:19 99.1 F 83 16 139/75 09/26/18 05:54 99.5 F 82 18 150/79 H 09/25/18 23:14 99.1 F 79 18 142/78 H 09/25/18 15:22 97.7 F 77 17 168/87 H 09/25/18 14:10 97.3 F L 80 18 182/92 H 09/25/18 13:31 75 17 153/89 H 09/25/18 13:01 74 25 H 151/88 H 09/25/18 12:30 73 14 180/99 H 09/25/18 12:09 72 19 189/107 H 09/25/18 11:26 74 16 201/117 H 208/109 H 09/25/18 10:21 72 18 200/108 H 09/25/18 09:53 97.3 F L 74 18 213/104 H Pulse Ox 09/26/18 07:19 94 09/26/18 05:54 92 09/25/18 23:14 92 09/25/18 15:22 95 09/25/18 14:10 98 09/25/18 13:31 98 09/25/18 13:01 96 09/25/18 12:30 95 09/25/18 12:09 94 09/25/18 11:26 96 09/25/18 10:21 100 09/25/18 09:53 100 Pain Intensity Left Leg: Pain Intensity: 8 Notes Mental Status: alert / awake / arousable and participated in evaluation Patient Amnestic to Procedure: Yes Nausea / Vomiting: adequately controlled Pain: adequately controlled Airway Patency, RR, SpO2: stable & adequate BP & HR: stable & adequate Hydration State: stable & adequate Anesthetic Complications: no major complications apparent and Pt Satisfied with anesthetic care
[2018-09-26] MEDS ORDERED: HYDROmorphone INJ 0.5 MG/0.5 ML SYR IV PRN ×3 (10:35→13:50)
[2018-09-26] MEDS ORDERED: NALOXONE HCL 0.4 MG/1 ML VIAL/CARP IV PRN (10:35)
[2018-09-26 11:01] LABS: Basophils # (auto) 0.03 K/uL (0-0.2); Basophils % (auto) 0.3 %; Eosinophils # (auto) 0.36 K/uL (0-0.5); Eosinophils % (auto) 4.1 %; Hematocrit (blood only) 31.2 % (42-52); Hemoglobin 11.2 g/dL (14.0-18.0); Immature Granulocytes # (auto) 0.03 K/uL (0.00-0.02); Immature Granulocytes % (auto) 0.3 %; Lymphocytes # (auto) 0.92 K/uL (1.2-3.4); Lymphocytes % (auto) 10.5 %; Mean Corpuscular Hgb Conc 35.9 g/dL (32-36); Mean Corpuscular Volume 86.2 fL (80-100); Mean Platelet Volume 9.9 fL (7.4-10.4); Monocytes # (auto) 0.68 K/uL (0.11-0.59); Monocytes % (auto) 7.7 %; Neutrophils # (auto) 6.76 K/uL (1.4-6.5); Neutrophils % (auto) 77.1 %; Platelet Count 107 K/uL (130-400); RDW Coefficient of Variation 14.1 % (11.5-14.5); RDW Standard Deviation 44.4 fL (36.4-46.3); Red Blood Count 3.62 M/uL (4.7-6.1); White Blood Count 8.78 K/uL (4.8-10.8)
[2018-09-26 11:05] LABS: Estimated Average Glucose 212 mg/dl
[2018-09-26 11:31] LABS: BUN Creatinine Ratio 15.2 (10-20); Calcium 7.9 mg/dl (8.5-10.1); Creatinine Clr Calc Pharmacy 60.7 ml/min; Est GFR (African American) 72.8; Est GFR (Non-African American) 62.8; Potassium 3.8 mmol/L (3.5-5.1)
[2018-09-26] MEDS: INSULIN ASPART 100 UNITS/ML 3 ML PEN SC SCH ×3 (13:15→22:00)
[2018-09-26] MEDS ORDERED: HYDROmorphone INJ 0.5 MG/0.5 ML SYR IV STA (13:25)
[2018-09-26] MEDS: CEFAZOLIN 1000MG 1,000 MG/7.5 ML SYR IV SCH (17:16)
[2018-09-26] MEDS: OXYCODONE HCL IR 5 MG TAB (IMMEDIATE RELEASE) PO PRN ×2 (17:17→21:29)
[2018-09-26] MEDS ORDERED: SODIUM CHLORIDE 0.9% 1000ML 1,000 ML IV SCH (19:45)
[2018-09-26] MEDS ORDERED: PHARMACY GLYCEMIC MGMT CONSULT PRN (20:11)
[2018-09-26] MEDS ORDERED: INSULIN GLARGINE SOLOSTAR 100 UNITS/ML 3 ML PEN SC ONE (21:00)
[2018-09-26] MEDS: DOCUSATE SODIUM/SENNA 50/8.6MG TAB PO SCH (21:30)
[2018-09-27] MEDS: INSULIN ASPART 100 UNITS/ML 3 ML PEN SC SCH ×6 (00:22→21:26)
[2018-09-27] MEDS: CEFAZOLIN 1000MG 1,000 MG/7.5 ML SYR IV SCH (00:23)
--- NOTE | 2018-09-27 01:27 | Operative Report ---
DATE OF OPERATION: 09/26/2018 PREOPERATIVE DIAGNOSIS: Left displaced intertrochanteric hip fracture. POSTOPERATIVE DIAGNOSIS: Same. PROCEDURE: Open reduction internal fixation, left hip intertrochanteric fracture with 12 x 235 mm Synthes trochanteric fixation nail, an 11 mm x 95 mm helical blade and a 5 mm x 40 mm transverse locking screw. SURGEON: Teja Dove DO PRODUCTION WORKER: Keith Kwok PA-C, who was present for patient positioning, sterile prep and drape, management of retractors and instruments. He was present through the critical portions of the case including wound closure, application of sterile dressing and transport of the patient to recovery. ANESTHESIA: Spinal with sedation. SPECIMENS: None. DRAINS: None. COMPLICATIONS: None. BLOOD LOSS: 30 mL. PERTINENT HISTORY: This is a 72-year-old gentleman who sustained a twisting fall on his left hip. He had inability to ambulate. He had severe pain and discomfort. He was [facility] to [facility]. Radiographs and evaluation were performed noting a displaced left intertrochanteric hip fracture. He was admitted to the hospitalist service. The patient was then scheduled for surgery once optimized and stable for surgery as appropriate. All potential risks, benefits, complications, alternatives, rehab, potential for incomplete relief of symptoms, need for further surgery, DVT, PE, , persistent pain, swelling, scarring, weakness, neurovascular injury, wound complications, hardware failure, nonunion, malunion, and bone fracture were discussed with the patient. The patient decided to proceed with the procedure as indicated. DESCRIPTION OF PROCEDURE: The patient was transferred to the operative suite. The proper site was identified. The consent was reviewed, the patient was then administered sedation and spinal anesthetic. Once appropriate, the patient then transferred to the fracture table where the lower extremity was placed in fracture table traction and the nonoperative leg was placed in the well leg finn. All bony prominences were properly padded and protected. The padded post was placed in the peroneal and the patient was positioned appropriately. Next the left leg was placed on traction and reduction of the fracture was performed under fluoroscopic control. Next the operative hip was then sterilely prepped and draped in the usual fashion. Next a 10-blade scalpel incision was used to make an incision proximal to the greater trochanter. The incision was deep in the subcutaneous tissue and fascia and the tip of the greater trochanter was then palpated followed by placement of a guide pin under fluoroscopic control driven into the greater trochanter down to the level of the less trochanter. This was confirmed in AP and lateral projections followed by placement of the proximal reamer over the cannulated guide pin. Next the reamer was then removed using the soft tissue protector, which was also removed. Next the ball tip guide sherice was placed into the proximal femur under fluoroscopic control confirmed with AP and lateral fluoroscope projections. Next the trochanteric nail was then passed over the guide sherice into the femur, the guide sherice was removed and then under fluoroscopic control appropriate level of the femoral nail was then placed in AP projections. Next the targeting device was then fixed to the driving handle and 10-blade scalpel incision was made in the lateral aspect of the thigh. Next the tissue protector and cannulated guide system was then passed into the soft tissue until it was securely fixed against a lateral aspect of the femoral cortex. This was also confirmed under C-arm. Next the guide pin for the spiral blade was driven into the lateral aspect of the femur confirming this with AP lateral projections until the guide pin was in the center of the femoral neck and head approximately 5 mm from the subcortical bone of the femur. Next the spiral blade was then measured and then the lateral cortex was then drilled with the cortex reamer followed by use of the triple reamer with the depth stop set at appropriate depth. In this case, a 11 x 95 mm helical blade was then inserted over the cannulated guide sherice under fluoroscopic control. This was seated appropriately then traction was reduced from the limb and the fracture was then gently compressed and then locked proximally with the flexible screwdriver. Next the spiral blade was then disengaged from its insertion handle, insertion handle was then removed and the guide pin was removed from the femoral neck and head. Next the lateral targeting arm was used to insert the distal locking screw. First a 10-blade scalpel incision was made in the lateral aspect of the thigh, captured drill sleeves were then tamped gently to the lateral aspect of the femoral cortex then the locking screw hole was then drilled, measured and then an appropriate length screw was placed to lock the distal aspect of the nail. Next targeting sleeves were then removed. The insertion arm was then removed from the nail and final x-rays were obtained in AP and lateral projections. All incisions were then copiously irrigated with sterile normal saline. The proximal gluteus fascia was then closed using interrupted #1 Vicryl, the dermis was closed using buried interrupted 2-0 Vicryl sutures in all three incisions and the skin was then closed using skin laina. A sterile compressive dressing consisting of Xeroform gauze, sterile 4 x 4's and Tegaderm was applied. The patient was then awakened and taken to recovery in stable condition. I attest to the content of the Intraoperative Record and any orders documented therein. Any exception s are noted below.
[2018-09-27] MEDS: OXYCODONE HCL IR 5 MG TAB (IMMEDIATE RELEASE) PO PRN ×3 (04:09→19:38)
[2018-09-27 06:50] LABS: Basophils # (auto) 0.02 K/uL (0-0.2); Basophils % (auto) 0.2 %; Eosinophils # (auto) 0.39 K/uL (0-0.5); Eosinophils % (auto) 3.4 %; Hematocrit (blood only) 25.4 % (42-52); Immature Granulocytes # (auto) 0.02 K/uL (0.00-0.02); Immature Granulocytes % (auto) 0.2 %; Lymphocytes # (auto) 0.88 K/uL (1.2-3.4); Lymphocytes % (auto) 7.8 %; Mean Corpuscular Hgb Conc 35.4 g/dL (32-36); Mean Corpuscular Volume 85.8 fL (80-100); Mean Platelet Volume 9.9 fL (7.4-10.4); Monocytes # (auto) 0.91 K/uL (0.11-0.59); Neutrophils % (auto) 80.4 %; Platelet Count 108 K/uL (130-400); RDW Coefficient of Variation 14.4 % (11.5-14.5); RDW Standard Deviation 44.6 fL (36.4-46.3); Red Blood Count 2.96 M/uL (4.7-6.1); White Blood Count 11.32 K/uL (4.8-10.8)
[2018-09-27 07:33] LABS: BUN Creatinine Ratio 17.1 (10-20); Calcium 7.7 mg/dl (8.5-10.1); Creatinine Clr Calc Pharmacy 60.7 ml/min; Est GFR (African American) 72.8; Est GFR (Non-African American) 62.8; Potassium 4.4 mmol/L (3.5-5.1)
--- NOTE | 2018-09-27 07:51 | Orthopedic Progress Note ---
Date of Service September 27, 2018 Assessment & Plan (1) Closed intertrochanteric fracture of femur: PT/OT today. PWB LLE DVT prophylaxis with SCD's,KRYSTAL's, Enoxaparin Pain management - Hydromorphone,Oxycodone DC planning - Pt may need Rehab/SNF prior to returning to home. Follow PT progress for now. Subjective POD 1 s/p Left TFN Pt sleeping but easily awoken. Having pain off and on. States "I'm still needing pain medication." Discussed that he would likely continue to need pain meds over the next several days depending on the severity of pain. Denies SOB, CP, LH. Physical Exam 2 Vital Signs (Past 24 Hours): Last Vital Signs Temp 37.7 C H 09/27/18 04:03 Pulse 103 H 09/27/18 07:06 Resp 16 09/27/18 07:06 BP 138/71 09/27/18 07:06 Pulse Ox 94 09/27/18 07:06 Physical Exam: Dressings C/D/I. Thigh with mild swelling but soft. Calves soft, NT. NV intact. Toes mobile. Results & Data Laboratory Results 09/27/18 09/27/18 09/27/18 Range/Units 06:39 06:39 03:59 WBC 11.32 H (4.8-10.8) K/uL RBC 2.96 L (4.7-6.1) M/uL Hgb 9.0 L (14.0-18.0) g/dL Hct 25.4 L (42-52) % MCV 85.8 (80-100) fL MCH 30.4 (25-34) pg MCHC 35.4 (32-36) g/dL RDW Std Deviation 44.6 (36.4-46.3) fL RDW Coeff of Pranav 14.4 (11.5-14.5) % Plt Count 108 L (130-400) K/uL MPV 9.9 (7.4-10.4) fL Immature Gran % (Auto) 0.2 % Neut % (Auto) 80.4 % Lymph % (Auto) 7.8 % Gosper % (Auto) 8.0 % Eos % (Auto) 3.4 % Baso % (Auto) 0.2 % Immature Gran # (Auto) 0.02 (0.00-0.02) K/uL Neut # (Auto) 9.10 H (1.4-6.5) K/uL Lymph # (Auto) 0.88 L (1.2-3.4) K/uL Gosper # (Auto) 0.91 H (0.11-0.59) K/uL Eos # (Auto) 0.39 (0-0.5) K/uL Baso # (Auto) 0.02 (0-0.2) K/uL Sodium 134 L (136-145) mmol/L Potassium 4.4 D (3.5-5.1) mmol/L Chloride 102 (98-107) mmol/L Carbon Dioxide 26 (21-32) mmol/L Anion Gap 6.0 (3-11) BUN 20 H (7-18) mg/dl Creatinine 1.17 (0.6-1.4) mg/dl Est Cr Clr Drug Dosing 60.7 ml/min Est GFR ( Amer) 72.8 Est GFR (Non-Af Amer) 62.8 BUN/Creatinine Ratio 17.1 (10-20) Glucose 164 H (70-99) mg/dl POC Glucose 158 H (70-99) Estimat Average Glucose mg/dl Hemoglobin A1c (4.5-5.6) % Calcium 7.7 L (8.5-10.1) mg/dl 09/27/18 09/26/18 09/26/18 Range/Units 00:20 20:36 16:57 WBC (4.8-10.8) K/uL RBC (4.7-6.1) M/uL Hgb (14.0-18.0) g/dL Hct (42-52) % MCV (80-100) fL MCH (25-34) pg MCHC (32-36) g/dL RDW Std Deviation (36.4-46.3) fL RDW Coeff of Pranav (11.5-14.5) % Plt Count (130-400) K/uL MPV (7.4-10.4) fL Immature Gran % (Auto) % Neut % (Auto) % Lymph % (Auto) % Gosper % (Auto) % Eos % (Auto) % Baso % (Auto) % Immature Gran # (Auto) (0.00-0.02) K/uL Neut # (Auto) (1.4-6.5) K/uL Lymph # (Auto) (1.2-3.4) K/uL Gosper # (Auto) (0.11-0.59) K/uL Eos # (Auto) (0-0.5) K/uL Baso # (Auto) (0-0.2) K/uL Sodium (136-145) mmol/L Potassium (3.5-5.1) mmol/L Chloride (98-107) mmol/L Carbon Dioxide (21-32) mmol/L Anion Gap (3-11) BUN (7-18) mg/dl Creatinine (0.6-1.4) mg/dl Est Cr Clr Drug Dosing ml/min Est GFR ( Amer) Est GFR (Non-Af Amer) BUN/Creatinine Ratio (10-20) Glucose (70-99) mg/dl POC Glucose 242 H 326 H 331 H (70-99) Estimat Average Glucose mg/dl Hemoglobin A1c (4.5-5.6) % Calcium (8.5-10.1) mg/dl 09/26/18 09/26/18 09/26/18 Range/Units 12:42 10:52 10:52 WBC (4.8-10.8) K/uL RBC (4.7-6.1) M/uL Hgb (14.0-18.0) g/dL Hct (42-52) % MCV (80-100) fL MCH (25-34) pg MCHC (32-36) g/dL RDW Std Deviation (36.4-46.3) fL RDW Coeff of Pranav (11.5-14.5) % Plt Count (130-400) K/uL MPV (7.4-10.4) fL Immature Gran % (Auto) % Neut % (Auto) % Lymph % (Auto) % Gosper % (Auto) % Eos % (Auto) % Baso % (Auto) % Immature Gran # (Auto) (0.00-0.02) K/uL Neut # (Auto) (1.4-6.5) K/uL Lymph # (Auto) (1.2-3.4) K/uL Gosper # (Auto) (0.11-0.59) K/uL Eos # (Auto) (0-0.5) K/uL Baso # (Auto) (0-0.2) K/uL Sodium 135 L (136-145) mmol/L Potassium 3.8 (3.5-5.1) mmol/L Chloride 103 (98-107) mmol/L Carbon Dioxide 27 (21-32) mmol/L Anion Gap 5.0 (3-11) BUN 18 (7-18) mg/dl Creatinine 1.17 (0.6-1.4) mg/dl Est Cr Clr Drug Dosing 60.7 ml/min Est GFR ( Amer) 72.8 Est GFR (Non-Af Amer) 62.8 BUN/Creatinine Ratio 15.2 (10-20) Glucose 231 H (70-99) mg/dl POC Glucose 295 H (70-99) Estimat Average Glucose 212 mg/dl Hemoglobin A1c 9.0 H (4.5-5.6) % Calcium 7.9 L (8.5-10.1) mg/dl 09/26/18 Range/Units 10:52 WBC 8.78 (4.8-10.8) K/uL RBC 3.62 L (4.7-6.1) M/uL Hgb 11.2 L (14.0-18.0) g/dL Hct 31.2 L (42-52) % MCV 86.2 (80-100) fL MCH 30.9 (25-34) pg MCHC 35.9 (32-36) g/dL RDW Std Deviation 44.4 (36.4-46.3) fL RDW Coeff of Pranav 14.1 (11.5-14.5) % Plt Count 107 L (130-400) K/uL MPV 9.9 (7.4-10.4) fL Immature Gran % (Auto) 0.3 % Neut % (Auto) 77.1 % Lymph % (Auto) 10.5 % Gosper % (Auto) 7.7 % Eos % (Auto) 4.1 % Baso % (Auto) 0.3 % Immature Gran # (Auto) 0.03 H (0.00-0.02) K/uL Neut # (Auto) 6.76 H (1.4-6.5) K/uL Lymph # (Auto) 0.92 L (1.2-3.4) K/uL Gosper # (Auto) 0.68 H (0.11-0.59) K/uL Eos # (Auto) 0.36 (0-0.5) K/uL Baso # (Auto) 0.03 (0-0.2) K/uL Sodium (136-145) mmol/L Potassium (3.5-5.1) mmol/L Chloride (98-107) mmol/L Carbon Dioxide (21-32) mmol/L Anion Gap (3-11) BUN (7-18) mg/dl Creatinine (0.6-1.4) mg/dl Est Cr Clr Drug Dosing ml/min Est GFR ( Amer) Est GFR (Non-Af Amer) BUN/Creatinine Ratio (10-20) Glucose (70-99) mg/dl POC Glucose (70-99) Estimat Average Glucose mg/dl Hemoglobin A1c (4.5-5.6) % Calcium (8.5-10.1) mg/dl _ (1) Closed intertrochanteric fracture of femur Encounter type: initial encounter Fracture alignment: nondisplaced Fracture healing: Laterality: left Qualified Code(s): S72.145A - Nondisplaced intertrochanteric fracture of left femur, initial encounter for closed fracture
[2018-09-27] MEDS ORDERED: INSULIN GLARGINE SOLOSTAR 100 UNITS/ML 3 ML PEN SC ONE (08:00)
[2018-09-27] MEDS: KETOROLAC TROMETHAMINE 15 MG/ML VIAL IV SCH ×3 (09:35→21:30)
[2018-09-27] MEDS: ENOXAPARIN INJ 40 MG/0.4 ML SYR SQ SCH (09:36)
--- NOTE | 2018-09-27 14:13 | Pharmacy Report ---
Glycemic Control Consultation - Date of Service September 27, 2018 - Scope Scope: Glycemic Pharmacist consulted by Dr Canales on 09/26/18 for glycemic control and to write orders per [facility] inpatient glycemic control protocol - Objective Weight: 73.936 kg Accuchecks BSG (last 24hrs): 09/26/18 09/26/18 09/27/18 16:57 20:36 00:20 Glucose POC Glucose 331 H 326 H 242 H 09/27/18 09/27/18 09/27/18 03:59 06:39 08:04 Glucose 164 H POC Glucose 158 H 205 H 09/27/18 12:14 Glucose POC Glucose 286 H Laboratory Data (last 24hrs): 09/27/18 06:39 Potassium 4.4 D Carbon Dioxide 26 Anion Gap 6.0 Creatinine 1.17 Est Cr Clr Drug Dosing 60.7 HbA1c: Hemoglobin A1c 9.0 % (4.5-5.6) H 09/26/18 10:52 - Recent Pertinent Medications Outpatient Anti-diabetic Regimen: * N/A The patient is currently receiving: * Basal insulin: Lantus 15 units SQ x 1 last night * Correctional Insulin: Novolog Correction per scale ACHS Goal Range: Low 110 mg/dL - High 140 mg/dL Correction Factor: 20 mg/dL/unit * Prandial insulin: Per carb ratio of 1 unit per 10 grams CHO consumed * Oral Agents: Risk Factors for Insulin Resistance: * Recent Surgery: POD 1 for orthopedic surgery * Diet: T2DM - Assessment & Plan Assessment & Plan: ASSESSMENT: * Mr Braga is a 72 y/o M with newly diagnosed diabetes who presents for orthopedic surgery after a fracture. Patient's blood sugars were elevated on and 09/26. Pharmacy consulted for management once BSGs above 300 mg/dL. Patient given 0.2 units/kg of Lantus and received 7 units overnight of Novolog. Fasting this morning was 205 mg/dL. * Gave additional 10 units of Lantus this morning and then scheduled 15 units SQ BID starting tonight. Tightened to weight-based stress of 3 dosing for Novolog since patient's blood sugars did not appear very effected by CR of 10. Tightened further at lunch since BSGs continue to rise. PLAN FOR INPATIENT GLYCEMIC CONTROL: * Basal insulin * Lantus 10 units SQ x 1 then 15 units SQ BID * Bolus insulin * NovoLog per scale ACHS or Q6hrs while NPO * Goal Range: Low 110 mg/dL - High 140 mg/dL * Correction Factor: 20 mg/dL/unit * Nutritional / Prandial insulin per carb ratio of 1 unit per 6 grams CHO consumed * Please note that the plan above was derived based on current level of insulin resistance and hospital stress. These recommendations are appropriate for inpatient admission only. Plan of care upon discharge will need to be reassessed to avoid potential outpatient hypo/hyperglycemia. Thank you.
--- NOTE | 2018-09-27 14:19 | Hospitalist Progress Note ---
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 No double vision blurry vision No problems with speech or swallowing No palpitations, chest pain or pressure No Wheezing or breathing issues No abdominal pain nausea vomiting diarrhea changes in appetite or weight No burning urine urine frequency or changes in color Patient has typical postoperative leg and joint pain No skin rashes or oral lesions No unusual bruising or bleeding No focused back pain or numbness or loss of strength No changes in memory or confusion Physical Exam 2 Vital Signs (Past 24 Hours): Last Vital Signs Temp 37.7 C H 09/27/18 04:03 Pulse 93 H 09/27/18 09:43 Resp 18 09/27/18 09:43 BP 114/64 09/27/18 09:43 Pulse Ox 79 L 09/27/18 12:25 The patient appeared well nourished and normally developed. Vital signs as documented. Head exam is unremarkable. normocephalic, atraumatic Neck is without jugular venous distension, thyromegaly, or lymphademopathy Lungs are clear to auscultation and percussion. Cardiac exam reveals Rhythm is regular. First and second heart sounds normal. Abdominal exam reveals normal bowel sounds, no masses, no organomegaly Extremities he has tenderness to his left leg at the hip and down the thigh Neurologic exam is A&Ox3, no focal deficits, strength is equal bilateral Psychologically seems neither anxious or depressed Skin is warm Dry without bruises or lesions _ (1) Closed intertrochanteric fracture of femur Encounter type: initial encounter Fracture alignment: nondisplaced Fracture healing: Laterality: left Qualified Code(s): S72.145A - Nondisplaced intertrochanteric fracture of left femur, initial encounter for closed fracture
[2018-09-27] MEDS: ONDANSETRON INJ 2 MG/ML 2 ML VIAL IV PRN (18:48)
[2018-09-27] MEDS ORDERED: INSULIN GLARGINE SOLOSTAR 100 UNITS/ML 3 ML PEN SC SCH (21:00)
[2018-09-27] MEDS: DOCUSATE SODIUM/SENNA 50/8.6MG TAB PO SCH (21:30)
[2018-09-28] MEDS: KETOROLAC TROMETHAMINE 15 MG/ML VIAL IV SCH ×2 (02:55→08:59)
[2018-09-28] MEDS: ENOXAPARIN INJ 40 MG/0.4 ML SYR SQ SCH (08:59)
[2018-09-28] MEDS: INSULIN ASPART 100 UNITS/ML 3 ML PEN SC SCH ×4 (09:03→21:16)
--- NOTE | 2018-09-28 09:10 | Orthopedic Progress Note ---
Date of Service September 28, 2018 Assessment & Plan (1) Closed intertrochanteric fracture of femur: POD #2 ORIF left intertroch hip fx with IM nail PT/OT today. PWB LLE--No more than 50% WB LLE. DVT prophylaxis with SCD's,KRYSTAL's, Enoxaparin Pain management - Hydromorphone,Oxycodone DC planning - Pt may need Rehab/SNF prior to returning to home. Pain is controlled today. If PT goes well and medicine feels he is doing well, may consider D/C today. Subjective POD 2 s/p Left TFN Doing well today. Pain controlled. No complaints with the left hip. Most questions today concerning the IM sherice and rehabilitation choices upon d/c. Denies SOB, CP, LH. Physical Exam 2 Vital Signs (Past 24 Hours): Last Vital Signs Temp 37.4 C 09/28/18 07:57 Pulse 68 09/28/18 07:57 Resp 15 09/28/18 07:57 BP 118/62 09/28/18 07:57 Pulse Ox 95 09/28/18 07:57 Constitutional: WD/WN, vitals as above no acute distress (Lying comfortably in bed this morning.) Musculoskeletal: Hip: + surgical incision (Dressing is clean, dry and intact. Will be due for dressing change today.); hip normal to inspection, no deformity and no skin erythema Left thigh is soft. NV intact. Toes are mobile. Dorsiflexion/plantarflexion of the left ankle intact. Neurologic: moves all extremities and awake _ (1) Closed intertrochanteric fracture of femur Encounter type: initial encounter Fracture alignment: nondisplaced Fracture healing: Laterality: left Qualified Code(s): S72.145A - Nondisplaced intertrochanteric fracture of left femur, initial encounter for closed fracture
--- NOTE | 2018-09-28 10:04 | Pharmacy Report ---
Pharmacy Glycemic Short Note 2 - Date of Service September 28, 2018 - Glycemic Short BSG Results (Last 24 hours): 09/27/18 09/27/18 09/27/18 12:14 17:16 20:35 POC Glucose 286 H 230 H 205 H OUTPATIENT ANTIDIABETIC REGIMEN: * n/a - newly diagnosed ASSESSMENT: 09/28 * Mr Braga rec'd 49 units of insulin yesterday, 20 of this was basal (note: rec 'd 5 units of Lantus in the AM, not 10 units) * He is POD #2 with no additional causes of insulin resistance * Fasting BSG = 128 mg/dL; this is improved from yesterday and Lantus not quite at steady state so will continue w/ 20 units total of basal for now, dosing it once daily since dose is fairly low * Postprandial BSGs improved yesterday but still > 200 mg/dL by the evening. Current Novolog parameters are fairly aggressive. Will plan to continue for now but loosen once postprandial BSGs are improved. 09/27 * Mr Braga is a 72 y/o M with newly diagnosed diabetes who presents for orthopedic surgery after a fracture. Patient's blood sugars were elevated on and 09/26. Pharmacy consulted for management once BSGs above 300 mg/dL. Patient given 0.2 units/kg of Lantus and received 7 units overnight of Novolog. Fasting this morning was 205 mg/dL. * Gave additional 10 units of Lantus this morning and then scheduled 15 units SQ BID starting tonight. Tightened to weight-based stress of 3 dosing for Novolog since patient's blood sugars did not appear very effected by CR of 10. Tightened further at lunch since BSGs continue to rise. PLAN FOR INPATIENT GLYCEMIC CONTROL: * Basal insulin - change to once daily at bedtime, 1st dose w/ dinner today * Lantus 20 units qHS * Bolus insulin - continue same for now; loosen to CF 25, CR 8 once postprandial BSGs < 150 mg/dL * NovoLog per scale ACHS or Q6hrs while NPO * Goal Range: Low 110 mg/dL - High 140 mg/dL * Correction Factor: 20 mg/dL/unit * Nutritional / Prandial insulin per carb ratio of 1 unit per 6 grams CHO consumed PLAN FOR DISCHARGE: * A1c of 9% is a diagnosis of diabetes. CDE met with patient and family yesterday and provided a glucometer to check BSGs at home. Agree with recommendation to initiate metformin and f/u with PCP. * Recommend: metformin 500 mg BID w/ outpatient f/u to titrate to max dose as tolerated
[2018-09-28] MEDS: OXYCODONE HCL IR 5 MG TAB (IMMEDIATE RELEASE) PO PRN (15:26)
[2018-09-28] MEDS: ONDANSETRON INJ 2 MG/ML 2 ML VIAL IV PRN (18:10)
[2018-09-28] MEDS: INSULIN GLARGINE SOLOSTAR 100 UNITS/ML 3 ML PEN SC SCH (18:12)
[2018-09-28] MEDS: DOCUSATE SODIUM/SENNA 50/8.6MG TAB PO SCH (20:00)
--- NOTE | 2018-09-28 22:03 | Hospitalist Progress Note ---
Date of Service September 28, 2018 Assessment & Plan (1) Closed intertrochanteric fracture of femur: pain control with Oxycodone and Morphine IV 09/26/18 p Trochanteric Fixation Nail Surgeon: Teja Dove Patient has significant discomfort and weakness since his fall. Working on possibly going to rehab. 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 May require velasquez. will monitor overnight. Subjective Patient reports feeling well. He has no significant complaints except for hip pain. He states though that his hip pain is better controlled. He does report though that he has rubén having difficutly voiding (urine), and has required straight caths. Musculoskeletal: + joint pain (severe left hip pain) Physical Exam 2 Vital Signs (Past 24 Hours): Last Vital Signs Temp 37.3 C 09/28/18 15:17 Pulse 81 09/28/18 15:17 Resp 16 09/28/18 15:17 BP 106/53 L 09/28/18 15:17 Pulse Ox 96 09/28/18 15:17 Physical Exam: Constitutional: The patient appeared well nourished and normally developed. Vital signs as documented. Head exam is unremarkable. normocephalic, atraumatic Neck is without jugular venous distension, thyromegaly, or lymphademopathy Lungs are clear to auscultation and percussion. Cardiac exam reveals Rhythm is regular. First and second heart sounds normal. Abdominal exam reveals normal bowel sounds, no masses, no organomegaly Extremities he has tenderness to his left leg at the hip and down the thigh Neurologic exam is A&Ox3, no focal deficits, strength is equal bilateral Psychologically seems neither anxious or depressed Skin is warm Dry without bruises or lesions _ (1) Closed intertrochanteric fracture of femur Encounter type: initial encounter Fracture alignment: nondisplaced Fracture healing: Laterality: left Qualified Code(s): S72.145A - Nondisplaced intertrochanteric fracture of left femur, initial encounter for closed fracture
[2018-09-28] MEDS ORDERED: ACETAMINOPHEN 325 MG TAB PO PRN (22:32)
[2018-09-29 05:32] LABS: Hematocrit (blood only) 22.8 % (42-52); Hemoglobin 8.1 g/dL (14.0-18.0); Mean Corpuscular Hgb Conc 35.5 g/dL (32-36); Mean Corpuscular Volume 85.1 fL (80-100); Mean Platelet Volume 10.1 fL (7.4-10.4); Platelet Count 144 K/uL (130-400); RDW Coefficient of Variation 14.6 % (11.5-14.5); RDW Standard Deviation 44.5 fL (36.4-46.3); Red Blood Count 2.68 M/uL (4.7-6.1); White Blood Count 8.98 K/uL (4.8-10.8)
[2018-09-29 05:50] LABS: Creatinine Clr Calc Pharmacy 47.6 ml/min; Est GFR (African American) 54.3; Est GFR (Non-African American) 46.9
[2018-09-29] MEDS: ENOXAPARIN INJ 40 MG/0.4 ML SYR SQ SCH (09:18)
[2018-09-29] MEDS: INSULIN ASPART 100 UNITS/ML 3 ML PEN SC SCH ×4 (09:23→20:33)
--- NOTE | 2018-09-29 12:08 | Orthopedic Progress Note ---
Date of Service September 29, 2018 Assessment & Plan (1) Closed intertrochanteric fracture of femur: POD #3 ORIF left intertroch hip fx with IM nail PT/OT today. PWB LLE--No more than 50% WB LLE. DVT prophylaxis with SCD's,KRYSTAL's, Enoxaparin Pain management - Hydromorphone,Oxycodone DC planning - Pt may need Rehab/SNF prior to returning to home. Orthopedically stable, will sign off, patient will need follow-up in 10-14 days upon discharge with Dr. Dove, . Subjective Post Operative Progress Note Patient seen sitting up in bed, comfortable, denies complaints, pain well controlled, no acute issues. Physical Exam 2 Vital Signs (Past 24 Hours): Last Vital Signs Temp 36.6 C 09/29/18 11:14 Pulse 81 09/29/18 11:14 Resp 18 09/29/18 11:14 BP 117/66 09/29/18 11:14 Pulse Ox 92 09/29/18 11:14 Physical Exam: LLE NVSI +EHL/FHL/TA/GS SILT grossly, +2 DP pulse, compartments soft NT, dressing cdi. Constitutional: WD/WN, vitals as above _ (1) Closed intertrochanteric fracture of femur Encounter type: initial encounter Fracture alignment: nondisplaced Fracture healing: Laterality: left Qualified Code(s): S72.145A - Nondisplaced intertrochanteric fracture of left femur, initial encounter for closed fracture
[2018-09-29] MEDS: OXYCODONE HCL IR 5 MG TAB (IMMEDIATE RELEASE) PO PRN ×2 (13:23→20:30)
[2018-09-29 17:01] LABS: Appearance Urine Cloudy (Clear); Bacteria Urine Automated Negative (Negative); Bilirubin Urine Negative (Negative); Blood Urine Negative (Negative); Color Urine Yellow; Glucose Urine UA Trace (Negative); Ketones Urine Trace (Negative); Leukocyte Esterase Urine Negative (Negative); Nitrite Urine Negative (Negative); Protein Urine 1+ (Negative); Specific Gravity Urine 1.024 (1.000-1.030); Urobilinogen Urine Negative (Negative)
[2018-09-29] MEDS: DOCUSATE SODIUM/SENNA 50/8.6MG TAB PO SCH (20:31)
[2018-09-29] MEDS: INSULIN GLARGINE SOLOSTAR 100 UNITS/ML 3 ML PEN SC SCH (20:32)
--- NOTE | 2018-09-29 23:25 | Hospitalist Progress Note ---
Date of Service September 29, 2018 Assessment & Plan (1) Closed intertrochanteric fracture of femur: pain control with Oxycodone and Morphine IV 09/26/18 p Trochanteric Fixation Nail Surgeon: Teja Dove Patient has significant discomfort and weakness since his fall. Working on possibly going to rehab. (2) Fall: due to slipping on ice no loss of consciousness, this was not syncope. will likely need neuro consult as an outpatient. 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 This is his 3rd straight cath. May require velasquez. will monitor overnight. Spent 25 minutes in management of patient. Subjective Patient reports feeling well. He reports he requires his pain medicine to help control his pain His is at bediside. She reports that he has been having issues with his memory and has rubén having balance problems prior to his fall. She would like for him to followup with neurology as an outpatient. Musculoskeletal: + joint pain (severe left hip pain) Physical Exam 2 Vital Signs (Past 24 Hours): Last Vital Signs Temp 37.3 C 09/29/18 15:48 Pulse 75 09/29/18 15:48 Resp 18 09/29/18 15:48 BP 117/72 09/29/18 15:48 Pulse Ox 96 09/29/18 15:48 Physical Exam: Constitutional: The patient appeared well nourished and normally developed. Vital signs as documented. Head exam is unremarkable. normocephalic, atraumatic Neck is without jugular venous distension, thyromegaly, or lymphademopathy Lungs are clear to auscultation and percussion. Cardiac exam reveals Rhythm is regular. First and second heart sounds normal. Abdominal exam reveals normal bowel sounds, no masses, no organomegaly Extremities he has tenderness to his left leg at the hip and down the thigh Neurologic exam is A&Ox3, no focal deficits, strength is equal bilateral Psychologically seems neither anxious or depressed Skin is warm Dry without bruises or lesions _ (1) Closed intertrochanteric fracture of femur Encounter type: initial encounter Fracture alignment: nondisplaced Fracture healing: Laterality: left Qualified Code(s): S72.145A - Nondisplaced intertrochanteric fracture of left femur, initial encounter for closed fracture
[2018-09-30] MEDS: OXYCODONE HCL IR 5 MG TAB (IMMEDIATE RELEASE) PO PRN ×2 (08:04→19:52)
[2018-09-30 08:29] LABS: Hematocrit (blood only) 20.4 % (42-52); Hemoglobin 7.2 g/dL (14.0-18.0); Mean Corpuscular Hgb Conc 35.3 g/dL (32-36); Mean Corpuscular Volume 86.4 fL (80-100); Mean Platelet Volume 9.6 fL (7.4-10.4); Platelet Count 135 K/uL (130-400); RDW Coefficient of Variation 14.7 % (11.5-14.5); RDW Standard Deviation 45.2 fL (36.4-46.3); Red Blood Count 2.36 M/uL (4.7-6.1); White Blood Count 6.24 K/uL (4.8-10.8)
[2018-09-30 08:48] LABS: Basophils # (auto) 0.02 K/uL (0-0.2); Basophils % (auto) 0.3 %; Eosinophils # (auto) 0.42 K/uL (0-0.5); Eosinophils % (auto) 6.7 %; Immature Granulocytes # (auto) 0.01 K/uL (0.00-0.02); Immature Granulocytes % (auto) 0.2 %; Lymphocytes # (auto) 1.24 K/uL (1.2-3.4); Lymphocytes % (auto) 19.9 %; Monocytes # (auto) 0.72 K/uL (0.11-0.59); Monocytes % (auto) 11.5 %; Neutrophils # (auto) 3.83 K/uL (1.4-6.5); Neutrophils % (auto) 61.4 %; RBC Morphology Unremarkable
[2018-09-30] MEDS: ENOXAPARIN INJ 40 MG/0.4 ML SYR SQ SCH (09:15)
[2018-09-30] MEDS: INSULIN ASPART 100 UNITS/ML 3 ML PEN SC SCH ×4 (09:17→21:36)
--- NOTE | 2018-09-30 10:42 | Urology Consultation ---
Date of Consultation September 30, 2018 Assessment & Plan (1) Retention of urine: - voiding well now - no intervention - might benefit from tamsulosin History of Present Illness Attending Physician: Riki Johnson s/p hip fracture/surgery - post op retention - required straight cath - fortunately, voided overnight - no hematuria/dysuria - felt he emptied completely - no voiding problems prior to injury Allergies Allergy/AdvReac Type Severity Reaction Status Date / Time cat dander AdvReac Sneezing Verified 09/25/18 10:33 horse dander AdvReac Sneezing Verified 09/25/18 10:33 Home Medications Home Medications Medication Instructions Recorded Confirmed Type ofloxacin OPHTHALMIC (EYE) 09/25/18 History prednisolone acetate OPHTHALMIC (EYE) DIRECTED 09/25/18 History timolol maleate OPHTHALMIC (EYE) 09/25/18 History Patient History Medical History Fall Glaucoma Pre-diabetes Hiatal hernia (Acute) Surgical History Hx of knee surgery Hx of cataract surgery RIGHT on 07/15/18: was given 4mg of versed without apparent complications Family History Father Alcoholic cirrhosis Mother Lung cancer Diabetes Social History Communication Ability: Effective Beliefs That Will Affect Care: None Current Living Situation: Spouse Other Information That Helps Us Care for You: No Feels Safe at Home: Yes Safety Concerns: Feels Safe At This Time Smoking Status: Never smoker Hx Alcohol Use: Yes Hx Substance Use: No Review of Systems Constitutional: as per Subjective / HPI; no fever and no chills Respiratory: no cough and no dyspnea Cardiovascular: no chest pain and no dyspnea Gastrointestinal: no abdominal pain and no nausea Genitourinary (Male): + difficulty urinating and + nocturia Musculoskeletal: no back pain and no neck pain Integumentary: no rash Endocrine: no fatigue Physical Exam Vital Signs (Past 24 Hours): Last Vital Signs Temp 36.9 C 09/30/18 08:02 Pulse 68 09/30/18 08:02 Resp 15 09/30/18 08:02 BP 130/64 09/30/18 08:02 Pulse Ox 93 09/30/18 08:02 Physical Exam: NAD AFVSS no resp distress RRR abd soft no cva tenderness limited mobility of the hip mild edema no rash
--- NOTE | 2018-09-30 14:24 | Pharmacy Report ---
Pharmacy Glycemic Short Note 2 - Date of Service September 30, 2018 - Glycemic Short BSG Results (Last 24 hours): 09/29/18 09/29/18 09/30/18 16:54 20:26 07:58 POC Glucose 143 H 141 H 100 H 09/30/18 11:57 POC Glucose 170 H OUTPATIENT ANTIDIABETIC REGIMEN: * n/a - newly diagnosed ASSESSMENT: 09/30: * Patient received 38 units of insulin yesterday, 20 of this was basal * Fasting BSG = 100mg/dL, I will decrease basal dose by 10% for this evening, given significant decrease in fasting BSG today * As postprandial BSGs improved, CF/CR decreased starting with breakfast this morning 09/28 * Mr Braga rec'd 49 units of insulin yesterday, 20 of this was basal (note: rec'd 5 units of Lantus in the AM, not 10 units) * He is POD #2 with no additional causes of insulin resistance * Fasting BSG = 128 mg/dL; this is improved from yesterday and Lantus not quite at steady state so will continue w/ 20 units total of basal for now, dosing it once daily since dose is fairly low * Postprandial BSGs improved yesterday but still > 200 mg/dL by the evening. Current Novolog parameters are fairly aggressive. Will plan to continue for now but loosen once postprandial BSGs are improved. 09/27 * Mr Braga is a 72 y/o M with newly diagnosed diabetes who presents for orthopedic surgery after a fracture. Patient's blood sugars were elevated on 09/25 and 09/26. Pharmacy consulted for management once BSGs above 300 mg/dL. Patient given 0.2 units/kg of Lantus and received 7 units overnight of Novolog. Fasting this morning was 205 mg/dL. * Gave additional 10 units of Lantus this morning and then scheduled 15 units SQ BID starting tonight. Tightened to weight-based stress of 3 dosing for Novolog since patient's blood sugars did not appear very effected by CR of 10. Tightened further at lunch since BSGs continue to rise. PLAN FOR INPATIENT GLYCEMIC CONTROL: * Basal insulin - change to once daily at bedtime, 1st dose w/ dinner today * Lantus 20 units qHS * Bolus insulin - continue same for now; loosen to CF 25, CR 8 once postprandial BSGs < 150 mg/dL * NovoLog per scale ACHS or Q6hrs while NPO * Goal Range: Low 110 mg/dL - High 140 mg/dL * Correction Factor: 20 mg/dL/unit * Nutritional / Prandial insulin per carb ratio of 1 unit per 6 grams CHO consumed PLAN FOR DISCHARGE: * A1c of 9% is a diagnosis of diabetes. CDE met with patient and family yesterday and provided a glucometer to check BSGs at home. Agree with recommendation to initiate metformin and f/u with PCP. * Recommend: metformin 500 mg BID w/ outpatient f/u to titrate to max dose as tolerated
[2018-09-30 18:19] LABS: Hematocrit (blood only) 23.7 % (42-52); Hemoglobin 8.3 g/dL (14.0-18.0)
[2018-09-30] MEDS ORDERED: INSULIN GLARGINE SOLOSTAR 100 UNITS/ML 3 ML PEN SC SCH (21:00)
[2018-09-30] MEDS: DOCUSATE SODIUM/SENNA 50/8.6MG TAB PO SCH (21:36)
--- NOTE | 2018-09-30 22:56 | Hospitalist Progress Note ---
Date of Service September 30, 2018 Assessment & Plan (1) Closed intertrochanteric fracture of femur: pain control with Oxycodone and Morphine IV 09/26/18 p Trochanteric Fixation Nail Surgeon: Teja Dove Patient has significant discomfort and weakness since his fall. Patient's plan was to go to rehab. However he has anemia. Will monitor his CBC again in AM. Hemoglobin has been fluctuating between 7 and 8. (2) Fall: due to slipping on ice no loss of consciousness, this was not syncope. will likely need neuro consult as an outpatient. 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 Spent 25 minutes in management of patient. was in room and was updated. Subjective Patient reports feeling well. He reports he requires his pain medicine to help control his pain His is at bedside. Patient denies any episodes of blood in stool. Patient denies fatigue, chest pain, diaphoresis, nasuea, vomiting. Patient reports he is able to urinate and has not required catherization today. Musculoskeletal: + joint pain (severe left hip pain) Physical Exam Vital Signs (Past 24 Hours): Last Vital Signs Temp 37.0 C 09/30/18 15:11 Pulse 74 09/30/18 15:11 Resp 16 09/30/18 15:11 BP 130/74 09/30/18 15:11 Pulse Ox 95 09/30/18 15:11 Physical Exam: Constitutional: The patient appeared well nourished and normally developed. Vital signs as documented. Head exam is unremarkable. normocephalic, atraumatic Neck is without jugular venous distension, thyromegaly, or lymphademopathy Lungs are clear to auscultation and percussion. Cardiac exam reveals Rhythm is regular. First and second heart sounds normal. Abdominal exam reveals normal bowel sounds, no masses, no organomegaly Extremities he has tenderness to his left leg at the hip and down the thigh Neurologic exam is A&Ox3, no focal deficits, strength is equal bilateral Psychologically seems neither anxious or depressed Skin is warm Dry without bruises or lesions (1) Closed intertrochanteric fracture of femur Encounter type: initial encounter Fracture alignment: nondisplaced Later ality: left Qualified Code(s): S72.145A - Nondisplaced intertrochanteric fracture of left femur, initial encounter for closed fracture
[2018-10-01 07:22] LABS: Basophils # (auto) 0.03 K/uL (0-0.2); Basophils % (auto) 0.5 %; Eosinophils # (auto) 0.56 K/uL (0-0.5); Eosinophils % (auto) 9.7 %; Hematocrit (blood only) 21.9 % (42-52); Hemoglobin 7.6 g/dL (14.0-18.0); Immature Granulocytes # (auto) 0.01 K/uL (0.00-0.02); Immature Granulocytes % (auto) 0.2 %; Lymphocytes # (auto) 1.21 K/uL (1.2-3.4); Mean Corpuscular Hgb Conc 34.7 g/dL (32-36); Mean Corpuscular Volume 86.9 fL (80-100); Mean Platelet Volume 9.3 fL (7.4-10.4); Monocytes # (auto) 0.61 K/uL (0.11-0.59); Monocytes % (auto) 10.6 %; Neutrophils # (auto) 3.34 K/uL (1.4-6.5); Platelet Count 149 K/uL (130-400); RDW Coefficient of Variation 15.3 % (11.5-14.5); RDW Standard Deviation 46.9 fL (36.4-46.3); Red Blood Count 2.52 M/uL (4.7-6.1); White Blood Count 5.76 K/uL (4.8-10.8)
[2018-10-01 07:51] LABS: RBC Morphology Unremarkable
[2018-10-01] MEDS: ENOXAPARIN INJ 40 MG/0.4 ML SYR SQ SCH (08:55)
[2018-10-01] MEDS: INSULIN ASPART 100 UNITS/ML 3 ML PEN SC SCH ×2 (09:22→13:57)
[2018-10-01] MEDS ORDERED: SODIUM CHLORIDE 0.9% 250 ML IV PRN (10:15)
[2018-10-01 11:12] LABS: BUN Creatinine Ratio 20.3 (10-20); Calcium 8.3 mg/dl (8.5-10.1); Creatinine Clr Calc Pharmacy 65.7 ml/min; Est GFR (African American) 80.2; Est GFR (Non-African American) 69.2; Potassium 4.3 mmol/L (3.5-5.1)
--- NOTE | 2018-10-01 12:44 | Pharmacy Report ---
Pharmacy Glycemic Short Note 2 - Date of Service October 01, 2018 - Glycemic Short BSG Results (Last 24 hours): 09/30/18 09/30/18 10/01/18 16:59 20:29 07:08 Glucose 87 POC Glucose 164 H 181 H 10/01/18 10/01/18 07:47 11:58 Glucose POC Glucose 95 122 H OUTPATIENT ANTIDIABETIC REGIMEN: * n/a - newly diagnosed ASSESSMENT: 10/01: * Patient received 27 units of insulin yesterday, of which 18 units were basal insulin * Fasting BSG 95 mg/dL - had previously reduced Lantus last evening ; due to continued decrease in insulin requirements each day will provide scale for this evening for Lantus dosing which will provide a reduced dosing * Lunchtime BSG within range - had previously adjusted CF/CR to 25 and 9 yesterday; will continue same for today 09/30: * Patient received 38 units of insulin yesterday, 20 of this was basal * Fasting BSG = 100mg/dL, I will decrease basal dose by 10% for this evening, given significant decrease in fasting BSG today * As postprandial BSGs improved, CF/CR decreased starting with breakfast this morning 09/28 * Mr Braag rec'd 49 units of insulin yesterday, 20 of this was basal (note: rec'd 5 units of Lantus in the AM, not 10 units) * He is POD #2 with no additional causes of insulin resistance * Fasting BSG = 128 mg/dL; this is improved from yesterday and Lantus not quite at steady state so will continue w/ 20 units total of basal for now, dosing it once daily since dose is fairly low * Postprandial BSGs improved yesterday but still > 200 mg/dL by the evening. Current Novolog parameters are fairly aggressive. Will plan to continue for now but loosen once postprandial BSGs are improved. 09/27 * Mr Braga is a 72 y/o M with newly diagnosed diabetes who presents for orthopedic surgery after a fracture. Patient's blood sugars were elevated on 09/25 and 09/26. Pharmacy consulted for management once BSGs above 300 mg/dL. Patient given 0.2 units/kg of Lantus and received 7 units overnight of Novolog. Fasting this morning was 205 mg/dL. * Gave additional 10 units of Lantus this morning and then scheduled 15 units SQ BID starting tonight. Tightened to weight-based stress of 3 dosing for Novolog since patient's blood sugars did not appear very effected by CR of 10. Tightened further at lunch since BSGs continue to rise. PLAN FOR INPATIENT GLYCEMIC CONTROL: * Basal insulin - change to once daily at bedtime * Lantus scale for HS -For BSG less than 180 mg/dL - give 14 units -For BSG 180 mg/dL or greater - give 16 units * Bolus insulin - continue same for now * NovoLog per scale ACHS or Q6hrs while NPO * Goal Range: Low 110 mg/dL - High 140 mg/dL * Correction Factor: 25 mg/dL/unit * Nutritional / Prandial insulin per carb ratio of 1 unit per 9 grams CHO consumed PLAN FOR DISCHARGE: * A1c of 9% is a diagnosis of diabetes. CDE met with patient and family and provided a glucometer to check BSGs at home. Agree with recommendation to initiate metformin and f/u with PCP. * Recommend: metformin 500 mg BID w/ outpatient f/u to titrate to max dose as tolerated
[2018-10-01] MEDS: OXYCODONE HCL IR 5 MG TAB (IMMEDIATE RELEASE) PO PRN (13:12)
[2018-10-01] MEDS ORDERED: INSULIN GLARGINE SOLOSTAR 100 UNITS/ML 3 ML PEN SC SCH (21:00)
--- NOTE | 2018-10-02 08:37 | Discharge Summary ---
Date of Service October 06, 2018 Admission HPI Per Admitting Provider 72 yo male with history of pre-diabetes, glaucoma, macular degeneration who was coming out of his house today and slipped on patch of ice. He thought that the patch was snow but it had frozen solid over night. He said he purposefully tried to fall on his side because he did not want to hit his head and did not want to put his arms out in case he would fracture his collar bone. 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 He landed with all his weight on his left hip and instantly had pain. He was able to get to a seated position on the ground but the pain was so intense that he knew he could not stand. His neighbors helped him into a car, lifting him, and brought him to the hospital. He rates the pain as 8 out of 10, constant, worse with movement, Morphine did help a little. Imaging showed a left intertrochanteric fracture, no other injuries seen. Orthopedics called, will plan for OR tomorrow, patient can eat today. Patient has very little in terms of medical history. He has pre-diabetes, not on any medications. His main issues are glaucoma, macular degeneration, cataracts that have been fixed. He denies any history of MS, stroke, CKD, valve disease or arrhythmias. His father from alcoholic cirrhosis, mother from lung cancer, she was a heavy smoker. She also had diabetes. He has a brother who is healthy. The patient does not smoke. He has one Bun Light every night to help him relax but does not drink more than that. CXR normal, Cr 1.1 and EKG shows sinus rhythm Discharge Data Consultations 09/25/18 12:36 ED Decision to Admit Stat 09/25/18 14:33 Consult Anesthesiology Routine Consult Case Management - Discharge Planning Routine Consult Orthopedic Surgery Routine 09/29/18 15:06 Consult Urology Routine Procedures Performed Operation Date: 09/26/18 07:30 Actual Procedures p Trochanteric Fixation Nail(Left) - Teja Dove,
--- NOTE | 2018-10-05 10:08 | Discharge Summary ---
Date of Service Oct 01, 2018 Admission HPI Per Admitting Provider 72 yo male with history of pre-diabetes, glaucoma, macular degeneration who was coming out of his house today and slipped on patch of ice. He thought that the patch was snow but it had frozen solid over night. He said he purposefully tried to fall on his side because he did not want to hit his head and did not want to put his arms out in case he would fracture his collar bone. 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 He landed with all his weight on his left hip and instantly had pain. He was able to get to a seated position on the ground but the pain was so intense that he knew he could not stand. His neighbors helped him into a car, lifting him, and brought him to the hospital. He rates the pain as 8 out of 10, constant, worse with movement, Morphine did help a little. Imaging showed a left intertrochanteric fracture, no other injuries seen. Orthopedics called, will plan for OR tomorrow, patient can eat today. Patient has very little in terms of medical history. He has pre-diabetes, not on any medications. His main issues are glaucoma, macular degeneration, cataracts that have been fixed. He denies any history of [place], stroke, CKD, valve disease or arrhythmias. His father from alcoholic cirrhosis, mother from lung cancer, she was a heavy smoker. She also had diabetes. He has a brother who is healthy. The patient does not smoke. He has one Bun Light every night to help him relax but does not drink more than that. CXR normal, Cr 1.1 and EKG shows sinus rhythm Principal Diagnosis Closed intertrochanteric fracture of femur Discharge Exam Constitutional: The patient appeared well nourished and normally developed. Vital signs as documented. Head exam is unremarkable. normocephalic, atraumatic Neck is without jugular venous distension, thyromegaly, or lymphademopathy Lungs are clear to auscultation and percussion. Cardiac exam reveals Rhythm is regular. First and second heart sounds normal. Abdominal exam reveals normal bowel sounds, no masses, no organomegaly Extremities he has tenderness to his left leg at the hip and down the thigh Neurologic exam is A&Ox3, no focal deficits, strength is equal bilateral Psychologically seems neither anxious or depressed Skin is warm Dry without bruises or lesions Discharge Data Allergies Allergy/AdvReac Type Severity Reaction Status Date / Time cat dander AdvReac Sneezing Verified 09/25/18 10:33 horse dander AdvReac Sneezing Verified 09/25/18 10:33 Consultations 09/25/18 12:36 ED Decision to Admit Stat 09/25/18 14:33 Consult Anesthesiology Routine Consult Case Management - Discharge Planning Routine Consult Orthopedic Surgery Routine 09/29/18 15:06 Consult Urology Routine Procedures Performed Operation Date: 09/26/18 07:30 Actual Procedures p Trochanteric Fixation Nail(Left) - Teja Dove DO Ordered Studies 09/26/18 FL fluoroscopy <1hr Routine FL hip LT 2-3V Routine Hospital Course (1) Closed intertrochanteric fracture of femur: pain control with Oxycodone and Morphine IV 09/26/18 p Trochanteric Fixation Nail Surgeon: Teja Dove Patient has significant discomfort and weakness since his fall. Patient's plan was to go to rehab. On day of discharge, patient was transfused one unit of blood. His blood count did not drop, and patient was asymptomatic. (2) Fall: due to slipping on ice no loss of consciousness, this was not syncope. will likely need neuro consult as an outpatient. 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 Tried updating but she did not spanish moss picker phone call. Will monitor CBC in 1 week. Total Time Total Time Spent Total Time Spent (In Minutes): 33 Total Time Includes: Examination of the Patient, Discharge Planning and Medication Reconciliation Discharge Plan Discharge Items Patient Disposition: Transfer Nursing Home Fac Reason For Visit: FALL Discharge Diagnosis: Closed intertrochanteric fracture of femur Discharge Goals: Decrease discomfort Activity: As commented below Activity Comment: gradualy increase activty as dictated by PT Weightbearing: Left partial Weightbearing Comment: No more than 50% weightbearing Non-emergency contact: Primary Care Provider Call non-emergency contact if: you have any medication questions Follow-up/Referrals: Teja Dove DO [Surgeon] - (Call to schedule a follow up for 2 weeks after surgery for staple removal.) Diet: Regular Addtl Provider Instructions: Recommend followup with PCP in 1-2 weeks. Recommend followup with Neurology within 1 month Will recheck blood level in 5 days. Send results to [facility]ide and PCP. [facility] DISCHARGE INSTRUCTIONS: HIP FRACTURE SELF CARE INSTRUCTIONS: A. You are to ambulate with a walker or crutches for approximately 6 weeks. B. You are PARTIAL WEIGHT BEARING on your operative lower extremity for at least 6 weeks. C. Wear low heeled shoes with non-slip soles D. Be sure that your floors are free of things that could trip you throw rugs, electrical cords, and small objects. Avoid wet and waxed floors, especially with crutches/walker/cane. E. Try to walk several times a day with rest periods between. F. You may shower 48 hours after surgery and get the incision area wet, but DO NOT soak or submerge incision area in water. (No baths, swimming pools, hot tubs) G. You may have a large, band-aid like dressing over your incision (Aquacel). This will remain on your incision for 7 days, and then can be removed. You CAN shower with this on. If incision is leaking through the dressing, please call the office . H. Do NOT apply soap or any ointment/lotions directly over incision. I. You may use ice as needed to operative site. SPECIAL CARE INSTRUCTIONS: VERY IMPORTANT TO READ AND REVIEW A. You may be at risk for phlebitis or blood clots. a. Wear surgical stockings (KRYSTAL hose) for 2 weeks after surgery to improve circulation and reduce swelling. b. Take LOVENOX 40mg SQ daily for 4 weeks or as directed. This is your blood thinner. c. If you are on Coumadin- you will have daily/weekly blood work to monitor your levels. This will be done by either your family physician/agricultural adviser (if you are on Coumadin chronically) versus your orthopedic surgeon. Expect a phone call the day of or the day after your blood work is drawn to adjust your dose accordingly. B. There are a few signs you need to watch for after you are home. Call [facility] at [phone] if you experience any of the following: a. If you have a temperature of 101 degrees or higher. b. Sudden increase in pain in your hip not relieved by rest or pain medication. c. Any fluid or drainage from the incision; redness of the incision. d. Shortness of breath or chest pain. C. Call your physician if: a. Temperature is greater than 101 degrees (F). b. Pain is not relieved by prescribed pain medications. c. Increase drainage or redness from incision. d. Unanswered questions or concerns. D. Pain Medication: a. You will be prescribed pain medication upon discharge that should last till your first post-operative appointment. b. If you experience nausea and/or skin rash, discontinue this medication and contact our office for an alternative medication. c. Caution- narcotic pain medication can cause constipation. FOLLOW UP VISIT: Please call [facility] at [phone] to schedule a follow up appointment 10-14 days from the date of your surgery date. Prescriptions: New sennosides-docusate sodium [Senna with Docusate Sodium] 8.6-50 mg Tablet 2 tab PO HS Qty: 60 RF: 0 acetaminophen [Mapap (acetaminophen)] 325 mg Tablet 650 mg PO Q4H PRN (Reason: pain) Qty: 30 RF: 0 oxycodone 5 mg Tablet 5 - 10 mg PO Q4H PRN (Reason: moderate pain) Qty: 40 RF: 0 metformin 500 mg tablet extended release 24 hr 500 mg PO BID Qty: 60 RF: 0 glipizide 5 mg tablet 2.5 mg PO DAILY Qty: 15 RF: 0 aspirin 81 mg tablet,delayed release (DR/EC) 81 mg PO BID Qty: 60 RF: 0 Continued ofloxacin 0.3 % drops ophthalmic (eye) RF: 0 prednisolone acetate 1 % drops,suspension ophthalmic (eye) DIRECTED RF: 0 timolol maleate 0.5 % drops ophthalmic (eye) RF: 0 Stand-Alone Forms: [facility], Opioid Pain [facility] Discharge Orders: Discharge Order (Routine); Ordered 10/01/18 Ordered By: Riki Johnson Admission Data Admit Date/Time: 09/25/18 12:48 Attending Provider: Riki Johnson Admit Provider: Anup Doran Primary Care Provider: Brayan Harrison Other Providers: Teja Dove ; Jonh Desir ; Anup Doran ; Tucker Keene. Service: Medical Other Interventions: Discharge Summary Assessment (RN) Last Done: 10/01/18 16:40 DC Date/Time DO NOT enter until pt leaves facility: 10/01/18 17:48
== END 2018-10-01 17:48 | DRG 482 ==
LOC: ED 09:44 → 3W 12:48 → SUATTDRO 12:48 → 3W 14:09